=== PATIENT | female | born 1965 | race Caucasian/White ===

== ENCOUNTER 2017-03-22 09:30 | Day surgery (SDC) | payer OTHER ==
[2017-03-22 10:11] VITALS: BMI 24.5
[2017-03-22] MEDS ORDERED: Lactated Ringer's 500 ML IV ONE (10:14)
[2017-03-22] MEDS ORDERED: Propofol 10 mg/ml Inj (20 ML) ONE (11:02)
[2017-03-22 11:55] VITALS: BP 121/73; PULSE 53; RESP 16; TEMP 96.9; O2SAT 100
== END 2017-03-22 13:31 | disposition home or self-care (01) ==
LOC: H.ENDO 09:30
PROVIDERS: ATTEND Internal Medicine Gastroenterology
DX: Z12.11 Encounter for screening for malignant neoplasm of colon (principal); K64.1 Second degree hemorrhoids

== ENCOUNTER 2017-04-23 15:46 | Emergency (ER) | payer SELFPAY ==
[2017-04-23 15:46] VITALS: BMI 24.5
[2017-04-23 15:52] VITALS: BP 115/78; PULSE 68; RESP 18; TEMP 97.7; O2SAT 98
[2017-04-23] MEDS ORDERED: Sodium Chloride 0.9% 1,000 ML IV STA (16:25)
--- NOTE | 2017-04-23 16:26 | ED PDOC ---
HPI: Headache Time Seen by Provider: 04/23/17 15:56 Chief Complaint (Nursing): Headache Chief Complaint (Provider): Headache History Per: Patient History/Exam Limitations: no limitations Onset/Duration Of Symptoms: Days (x5) Current Symptoms Are (Timing): Still Present Additional Complaint(s): Adina Montero is a 52 year old female with previous medical history of hypercholesterolemia, who presents to the emergency department with a complaint of right-sided constant headache ongoing for 5 days. Denied head injury, numbness, tingling sensation, nausea, vomiting, diarrhea, difficulty breathing, chest, neck pain, or abdominal pain. Patient stated she takes Advil or Tylenol for headaches but only experiences temporary relief. Not the worst pain in her life. Has had headaches similar in the past. PMD: none provided Past Medical History Reviewed: Historical Data, Nursing Documentation, Vital Signs Vital Signs: Last Vital Signs Temp 97.7 F 04/23/17 15:48 Pulse 68 04/23/17 15:48 Resp 18 04/23/17 15:48 BP 115/78 04/23/17 15:48 Pulse Ox 98 04/23/17 15:48 - Medical History PMH: Hypercholesterolemia Denies: Chronic Kidney Disease Other PMH: headaches - Surgical History Surgical History: No Surg Hx - Family History Family History: States: Unknown Family Hx - Social History Current smoker - smoking cessation education provided: No Alcohol: None Drugs: Denies - Home Medications Home Medications: Ambulatory Orders Medication Instructions Recorded No Known Home Med 03/22/17 - Allergies Allergies/Adverse Reactions: Allergies Allergy/AdvReac Type Severity Reaction Status Date / Time No Known Allergies Allergy Verified 03/22/17 10:11 Review of Systems ROS Statement: Except As Marked, All Systems Reviewed And Found Negative Constitutional: Negative for: Fever, Weakness Cardiovascular: Negative for: Chest Pain Respiratory: Negative for: Shortness of Breath Gastrointestinal: Negative for: Nausea, Vomiting, Abdominal Pain, Diarrhea Musculoskeletal: Negative for: Neck Pain, Shoulder Pain, Arm Pain Skin: Negative for: Rash Neurological: Positive for: Headache (right sided). Negative for: Weakness, Numbness (or tingling sensation), Other (head injury) Physical Exam - Reviewed Nursing Documentation Reviewed: Yes Vital Signs Reviewed: Yes - Physical Exam Appears: Positive for: Non-toxic, No Acute Distress Head Exam: Positive for: ATRAUMATIC, NORMAL INSPECTION, NORMOCEPHALIC Skin: Positive for: Normal Color, Warm, Dry Eye Exam: Positive for: Normal appearance, EOMI, PERRL. Negative for: Nystagmus ENT: Positive for: Normal ENT Inspection Neck: Positive for: Normal, Painless ROM, Supple Cardiovascular/Chest: Positive for: Regular Rate, Rhythm. Negative for: Chest Non Tender Respiratory: Positive for: Normal Breath Sounds. Negative for: Respiratory Distress Gastrointestinal/Abdominal: Positive for: Normal Exam, Bowel Sounds, Soft. Negative for: Tenderness, Guarding, Rebound Back: Positive for: Normal Inspection. Negative for: L CVA Tenderness, R CVA Tenderness Extremity: Positive for: Normal ROM. Negative for: Tenderness, Pedal Edema, Deformity Neurologic/Psych: Positive for: Alert, sugar boiler II-XII, Oriented, Other (no temporal tenderness). Negative for: Motor/Sensory Deficits, Aphasia, Facial Droop - Laboratory Results Result Diagrams: 04/23/17 17:16 04/23/17 17:16 Interpretation Of Abn Labs: no acute - ECG O2 Sat by Pulse Oximetry: 98 (RA) Pulse Ox Interpretation: Normal - CT Scan/US head Other Rad Studies (CT/US): Read By Radiologist Other Rad Interpretation: no acute - Progress ED Course And Treament: 181: Stable. AAOx3. Pain free with reglan. No visual changes. Fu with pcp. Advised to return if pain returns. Will consider LP at that time to further eval for bleeding or meningitis. Clinical suspicion low for these two considering resolution of symptoms, not severe headache, presentation, and no other clinical findings to suggest such. Medical Decision Making Medical Decision Making: Initial Impression: Headache Initial Plan: * CT head without contrast * CMP * Urine dipstick * Urine * CBC * ESR * PTT * PT * Reglan 10mg IV * NS 1,000ml IV per 1,000mls/hr Scribe Attestation: Documented by Nicolle Freeman, acting as a scribe for Jerrod Craig MD. Provider Scribe Attestation: All medical record entries made by the Scribe were at my direction and personally dictated by me. I have reviewed the chart and agree that the record accurately reflects my personal performance of the history, physical exam, medical decision making, and the department course for this patient. I have also personally directed, reviewed, and agree with the discharge instructions and disposition. Disposition - Clinical Impression Clinical Impression: Headache - Patient ED Disposition Is Patient to be Admitted: No Counseled Patient/Family Regarding: Studies Performed, Diagnosis, Need For Followup - Disposition Referrals: [facility] [Outside] - 04/25/17 Disposition: Routine/Home Disposition Time: 18:21 Condition: STABLE Additional Instructions: Return right away if headache returns. Will need to consider lumbar puncture and further testing to evaluate if any bleeding in the brain or infection in the brain present. Vuelva inmediatamente si el dolor de gladys vuelve. Ser necesario considerar la puncin lumbar y pruebas adicionales para evaluar si hay sangrado en el cerebro o sukhjinder infeccin en el cerebro presente. Instructions: Acute Headache (ED) Forms: [facility] (Ugandan) Print Language: BENINESE
[2017-04-23 17:28] LABS: BASO % 0.6 % (0.0-2.0); EOS # 0.1 K/uL (0.0-0.7); EOS % 1.4 % (0.0-4.0); HEMATOCRIT 42.8 % (34.0-47.0); LYMPH # 2.7 K/uL (1.0-4.3); LYMPH % 41.9 % (20.0-40.0); MEAN CELL VOLUME 89.7 fl (81.0-99.0); MEAN CORPUSCULAR HEMOGLOBIN 29.6 pg (27.0-31.0); MEAN PLATELET VOLUME 9.7 fl (7.2-11.7); MONO # 0.5 K/uL (0.0-0.8); MONO % 8.2 % (0.0-10.0); NEUT % 47.9 % (50.0-75.0); NRBC % 0.1 % (0.0-0.0); RED CELL DISTRIBUTION WIDTH 13.5 % (11.5-14.5); WHITE BLOOD COUNT 6.3 K/uL (4.8-10.8)
[2017-04-23 17:32] LABS: ALB/GLOB RATIO 1.3 (1.0-2.1); ALKALINE PHOSPHATASE 103 U/L (38-126); ALT/SGPT 49 U/L (9-52); AST/SGOT 31 U/L (14-36); BILIRUBIN,TOTAL 0.5 mg/dl (0.2-1.3); BLOOD UREA NITROGEN 14 mg/dl (7-17); CALCIUM 9.9 mg/dL (8.4-10.2); CARBON DIOXIDE 22 mmol/L (22-30); CHLORIDE 107 mmol/L (98-107); GFR AFRICAN-AMERICAN > 60; GLUCOSE,RANDOM 105 mg/dL (65-105); POTASSIUM 4.5 MMOL/L (3.6-5.0); SODIUM 141 mmol/l (132-148)
[2017-04-23 17:37] LABS: PARTIAL THROMBOPLASTIN TIME 33.7 Seconds (25.6-37.1)
--- NOTE | 2017-04-23 17:59 | CT ---
PROCEDURE: CT HEAD WITHOUT CONTRAST. HISTORY: headache COMPARISON: None available. TECHNIQUE: Axial computed tomography images were obtained through the head/brain without intravenous contrast. Radiation dose: Total exam DLP = mGy-cm. This CT exam was performed using one or more of the following dose reduction techniques: Automated exposure control, adjustment of the mA and/or kV according to patient size, and/or use of iterative reconstruction technique. FINDINGS: HEMORRHAGE: No intracranial hemorrhage. BRAIN: No mass effect or edema. No atrophy or chronic microvascular ischemic changes. VENTRICLES: Unremarkable. No hydrocephalus. CALVARIUM: Unremarkable. PARANASAL SINUSES: Unremarkable as visualized. No significant inflammatory changes. MASTOID AIR CELLS: Unremarkable as visualized. No inflammatory changes. OTHER FINDINGS: None. IMPRESSION: No acute intracranial abnormalities. No significant findings to account for the clinical presentation.
== END 2017-04-23 18:32 | disposition home or self-care (01) ==
LOC: H.ER 15:46
DX: R51 Headache (principal)
CPT/HCPCS: 70450; 80053; 81025; 85025; 85610; 85651; 85730; 96374; 99284; J2765; J7040

== ENCOUNTER 2017-10-07 11:45 | Inpatient (IN) | payer MEDICAID, SELFPAY ==
[2017-10-07 12:05] VITALS: BMI 33.6
[2017-10-07] MEDS ORDERED: Sodium Chloride 0.9% 1,000 ML IV STA (12:57)
--- NOTE | 2017-10-07 13:30 | ED PDOC ---
HPI: Abdomen Time Seen by Provider: 10/07/17 12:39 Chief Complaint (Nursing): Abdominal Pain Chief Complaint (Provider): Abdominal Pain History Per: Patient History/Exam Limitations: no limitations Onset/Duration Of Symptoms: Hrs (x3) Current Symptoms Are (Timing): Still Present Location Of Pain/Discomfort: RUQ, RLQ Associated Symptoms: Nausea, Vomiting Additional Complaint(s): 52 year old female presents to the ER complaining of right-sided abdominal pain with acute onset around 9AM this morning. Pain radiates to the right flank. Patient also had several episodes of vomiting and felt feverish and nauseous. Pain is described as severe. PMD: [facility] Past Medical History Reviewed: Historical Data, Nursing Documentation, Vital Signs Vital Signs: Last Vital Signs Temp 97.5 F L 10/07/17 12:06 Pulse 68 10/07/17 12:06 Resp 20 10/07/17 12:06 BP 106/63 10/07/17 12:06 Pulse Ox 98 10/07/17 14:40 - Medical History PMH: Hypercholesterolemia Denies: Chronic Kidney Disease - Family History Family History: States: Unknown Family Hx - Home Medications Home Medications: Ambulatory Orders Medication Instructions Recorded Aspirin [Ecotrin] 81 mg PO DAILY 10/07/17 Atorvastatin [Lipitor] 40 mg PO DAILY 10/07/17 metFORMIN [glucOPHAGE] 500 mg PO BID 10/07/17 - Allergies Allergies/Adverse Reactions: Allergies Allergy/AdvReac Type Severity Reaction Status Date / Time No Known Allergies Allergy Verified 03/22/17 10:11 Review of Systems ROS Statement: Except As Marked, All Systems Reviewed And Found Negative Constitutional: Positive for: Fever Gastrointestinal: Positive for: Nausea, Vomiting, Abdominal Pain. Negative for : Diarrhea Genitourinary Female: Negative for: Dysuria, Hematuria, Vaginal Bleeding Physical Exam - Reviewed Nursing Documentation Reviewed: Yes Vital Signs Reviewed: Yes - Physical Exam Appears: Positive for: Uncomfortable (moderate to severe discomfort) Head Exam: Positive for: ATRAUMATIC, NORMAL INSPECTION, NORMOCEPHALIC Skin: Positive for: Normal Color, Warm. Negative for: Rash Eye Exam: Positive for: EOMI, Normal appearance, PERRL Neck: Positive for: Normal, Painless ROM Cardiovascular/Chest: Positive for: Regular Rate, Rhythm. Negative for: Murmur Respiratory: Positive for: Normal Breath Sounds, Other (lungs clear to auscultation). Negative for: Respiratory Distress Gastrointestinal/Abdominal: Positive for: Soft, Tenderness (severe tenderness to RUQ, no lower abdominal tenderness), Other ((+) Mueller's sign). Negative for : Distended Back: Positive for: Normal Inspection. Negative for: Vertebral Tenderness Extremity: Positive for: Normal ROM. Negative for: Pedal Edema, Deformity Neurologic/Psych: Positive for: Alert (and awake) - Laboratory Results Result Diagrams: 10/07/17 13:15 10/07/17 13:15 - ECG O2 Sat by Pulse Oximetry: 98 (RA) Pulse Ox Interpretation: Normal Medical Decision Making Medical Decision Making: Initial Impression: RUQ pain, Right flank pain. Rule out cholecystitis vs UTI vs kidney stones Time: 12:55 Initial Plan: * Labs * IV fluids * Pepcid 20 mg IV * Toradol 30 mg IV * Zofran 4 mg IV * US Abdomen Complete * Reassessment 14:27 US ABDOMEN COMPLETE: FINDINGS: LIVER: Measures 15.0 cm. Diffusely increased echogenicity of the liver parenchyma. No solid mass appreciable however, simple cysts identified at the right lobe posteriorly measuring 2.2 cm greatest dimension, stable in the interval. A 1.0 cm cyst is also seen in the right lobe superior to the gallbladder fossa which is stable as well. A 3rd cyst seen previously is not captured in this examination. GALLBLADDER: Cholelithiasis again stent seen in the dependent portion the gallbladder with the wall upper limits normal thickness at 3.0 mm. There is a positive sonographic Mueller sign of the gallbladder mildly distended. No pericholecystic fluid collection. Clinically correlate for potential cholecystitis nevertheless. COMMON BILE DUCT: Measures 9.5 mm. No choledocholithiasis identified. The mid and distal common bile duct are not captured in this exam, which is typical due to overlying bowel gas. Note, the common hepatic duct measures approximately 10.5 mm. PANCREAS: The tail of the pancreas is obscured by overlying bowel gas with remainder unremarkable. RIGHT KIDNEY: Measures 9.2cm. Normal echogenicity. No calculus, mass, or hydronephrosis. LEFT KIDNEY: Measures 9.6cm. Normal echogenicity. No calculus, mass, or hydronephrosis. SPLEEN: Spleen appears unremarkable measuring 8.1 cm. AORTA: No aneurysmal dilatation. IVC: Unremarkable. OTHER FINDINGS: None. IMPRESSION: 1. Interval prominent dilatation of the common hepatic and bile ducts is identified without choledocholithiasis. However, the gallbladder is distended with cholelithiasis and upper limits normal mural thickness and a positive sonographic Mueller sign suspicious for cholecystitis. Clinically correlate. Follow-up MRCP and abdomen and pelvis CT with oral and intravenous contrast is recommended. 2. Two ectatic simple cysts identified. 3. Partial imaging of the pancreas. 4. Hepatic steatosis is reiterated. Scribe Attestation: Documented by Michelle Silva, acting as a scribe for Lia Alves MD Provider Scribe Attestation: All medical record entries made by the Scribe were at my direction and personally dictated by me. I have reviewed the chart and agree that the record accurately reflects my personal performance of the history, physical exam, medical decision making, and the department course for this patient. I have also personally directed, reviewed, and agree with the discharge instructions and disposition. case d/w [facility] resident for admission. Case d/w surgical technology instructor for consult. Disposition - Clinical Impression Clinical Impression: Cholelithiasis, Abdominal pain, Elevated liver enzymes - Patient ED Disposition Is Patient to be Admitted: Yes Doctor Will See Patient In The: Hospital - Disposition Disposition: Transfer of Care Disposition Time: 15:35 Condition: STABLE - Pt Status Changed To: Hospital Disposition Of: Inpatient - Admit Certification Admit to Inpatient:: After my assessment, the patient will require hospitalization for at least two midnights. This is because of the severity of symptoms shown, intensity of services needed, and/or the medical risk in this patient being treated as an outpatient. - POA Present On Arrival: None
[2017-10-07 13:32] LABS: BASO % 0.2 % (0.0-2.0); EOS % 0.2 % (0.0-4.0); HEMOGLOBIN 14.3 g/dL (12.0-16.0); LYMPH # 2.2 K/uL (1.0-4.3); LYMPH % 15.5 % (20.0-40.0); MEAN CELL VOLUME 89.8 fl (81.0-99.0); MEAN CORPUSCULAR HEMOGLOBIN 30.4 pg (27.0-31.0); MEAN CORPUSCULAR HGB CONC 33.9 g/dL (33.0-37.0); MEAN PLATELET VOLUME 10.1 fl (7.2-11.7); MONO # 0.7 K/uL (0.0-0.8); MONO % 5.2 % (0.0-10.0); NEUT # 11.3 K/uL (1.8-7.0); NEUT % 78.9 % (50.0-75.0); RBC 4.71 Mil/uL (3.80-5.20); RED CELL DISTRIBUTION WIDTH 12.9 % (11.5-14.5); WHITE BLOOD COUNT 14.3 K/uL (4.8-10.8)
[2017-10-07 13:46] LABS: ALB/GLOB RATIO 1.2 (1.0-2.1); ALBUMIN 4.6 g/dL (3.5-5.0); ALT/SGPT 87 U/L (9-52); AST/SGOT 80 U/L (14-36); BLOOD UREA NITROGEN 15 mg/dl (7-17); CALCIUM 9.7 mg/dL (8.4-10.2); GFR AFRICAN-AMERICAN > 60; GFR NON-AFRICAN AMERICAN > 60
[2017-10-07 14:10] LABS: SQUAMOUS EPITHIAL 3 /hpf (0-5); URINE BACTERIA RARE (<OCC); URINE BILIRUBIN SMALL (NEGATIVE); URINE BLOOD NEGATIVE (NEGATIVE); URINE CLARITY TURBID (Clear); URINE COLOR YELLOW (YELLOW); URINE GLUCOSE (UA) NEG (Normal); URINE LEUKOCYTE ESTERASE TRACE Leu/uL (Negative); URINE NITRATE NEGATIVE (NEGATIVE); URINE PROTEIN 100 mg/dL (NEGATIVE); URINE UROBILINOGEN 0.2-1.0 mg/dL (0.2-1.0)
--- NOTE | 2017-10-07 14:28 | US ---
HISTORY: ruq pain COMPARISON: Abdomen ultrasound exam 07/20/2015 TECHNIQUE: Sonographic evaluation of the abdomen. FINDINGS: LIVER: Measures 15.0 cm. Diffusely increased echogenicity of the liver parenchyma. No solid mass appreciable however, simple cysts identified at the right lobe posteriorly measuring 2.2 cm greatest dimension, stable in the interval. A 1.0 cm cyst is also seen in the right lobe superior to the gallbladder fossa which is stable as well. A 3rd cyst seen previously is not captured in this examination. GALLBLADDER: Cholelithiasis again stent seen in the dependent portion the gallbladder with the wall upper limits normal thickness at 3.0 mm. There is a positive sonographic Mueller sign of the gallbladder mildly distended. No pericholecystic fluid collection. Clinically correlate for potential cholecystitis nevertheless. COMMON BILE DUCT: Measures 9.5 mm. No choledocholithiasis identified. The mid and distal common bile duct are not captured in this exam, which is typical due to overlying bowel gas. Note, the common hepatic duct measures approximately 10.5 mm. PANCREAS: The tail of the pancreas is obscured by overlying bowel gas with remainder unremarkable. RIGHT KIDNEY: Measures 9.2cm. Normal echogenicity. No calculus, mass, or hydronephrosis. LEFT KIDNEY: Measures 9.6cm. Normal echogenicity. No calculus, mass, or hydronephrosis. SPLEEN: Spleen appears unremarkable measuring 8.1 cm. AORTA: No aneurysmal dilatation. IVC: Unremarkable. OTHER FINDINGS: None. IMPRESSION: 1. Interval prominent dilatation of the common hepatic and bile ducts is identified without choledocholithiasis. However, the gallbladder is distended with cholelithiasis and upper limits normal mural thickness and a positive sonographic Mueller sign suspicious for cholecystitis. Clinically correlate. Follow-up MRCP and abdomen and pelvis CT with oral and intravenous contrast is recommended. 2. Two ectatic simple cysts identified. 3. Partial imaging of the pancreas. 4. Hepatic steatosis is reiterated.
[2017-10-07] MEDS ORDERED: Piperacillin/Tazobact 3.375 GM in Sodium Chloride 0.9% 100 ML IVPB STA (15:01)
[2017-10-07] MEDS ORDERED: Morphine 4 MG/ML VIAL IV STA (15:02)
[2017-10-07] MEDS ORDERED: Morphine 4 MG/ML VIAL ONE (15:07)
--- NOTE | 2017-10-07 16:27 | CP.PCM.CON ---
History of Present Illness - History of Present Illness History of Present Illness: General Surgery Consult Note - Dr. Muller 52 y/o female with PMHx of DM, HLD and hypothyroidism seen in ED after surgical consultation for RUQ abdominal pain x 1 day. Pt states she has been experiencing constant pain since early this morning, accompanied by N/V. Denies chills, diarrhea, constipation. Admits to a mild fever early this morning. States she had a similar presentation approx 1 year ago and was treated with pills. She says that if there is a surgery that can be done to correct this, she is interested in having it done. PSHx: none All: NKDA Soc: denies EtOH, cigarette or illicit drug use FamHx: denies Review of Systems - Review of Systems All systems: reviewed and no additional remarkable complaints except (per HPI) Past Patient History - Past Medical History & Family History Past Medical History?: Yes - Past Social History Smoking Status: Never Smoked - CARDIAC Hx Hypercholesterolemia: Yes - PULMONARY Hx Respiratory Disorders: No - NEUROLOGICAL Hx Neurological Disorder: No - HEENT Hx HEENT Problems: No - RENAL Hx Chronic Kidney Disease: No - ENDOCRINE/METABOLIC Hx Endocrine Disorders: No - HEMATOLOGICAL/ONCOLOGICAL Hx Blood Disorders: No - INTEGUMENTARY Hx Dermatological Problems: No - MUSCULOSKELETAL/RHEUMATOLOGICAL Hx Musculoskeletal Disorders: No - GASTROINTESTINAL Hx Gastrointestinal Disorders: No - GENITOURINARY/GYNECOLOGICAL Hx Genitourinary Disorders: No - PSYCHIATRIC Hx Psychophysiologic Disorder: No Hx Emotional Abuse: No Hx Physical Abuse: No Hx Substance Use: No - SURGICAL HISTORY Hx Surgeries: Yes Hx Tubal Ligation: Yes - ANESTHESIA Hx Anesthesia: Yes Hx Anesthesia Reactions: No Hx Malignant Hyperthermia: No Meds Allergies/Adverse Reactions: Allergies Allergy/AdvReac Type Severity Reaction Status Date / Time No Known Allergies Allergy Verified 03/22/17 10:11 Physical Exam - Constitutional Appears: Well, Non-toxic, No Acute Distress - Head Exam Head Exam: ATRAUMATIC, NORMAL INSPECTION - Eye Exam Eye Exam: Normal appearance Pupil Exam: PERRL - Respiratory Exam Respiratory Exam: NORMAL BREATHING PATTERN. absent: Respiratory Distress - Cardiovascular Exam Cardiovascular Exam: REGULAR RHYTHM - GI/Abdominal Exam GI & Abdominal Exam: Tenderness. absent: Distended, Hernia, Mass, Rebound Additional comments: moderate RUQ tenderness - Extremities Exam Extremities exam: Positive for: normal inspection - Neurological Exam Neurological exam: Alert, Oriented x3 - Psychiatric Exam Psychiatric exam: Normal Affect, Normal Mood - Skin Skin Exam: Dry, Intact Results - Vital Signs Recent Vital Signs: Last Vital Signs Temp 98.8 F 10/07/17 15:47 Pulse 72 10/07/17 15:47 Resp 18 10/07/17 15:47 BP 107/68 10/07/17 15:47 Pulse Ox 95 10/07/17 15:47 - Labs Result Diagrams: 10/07/17 13:15 10/07/17 13:15 Labs: Laboratory Results - last 24 hr 10/07/17 10/07/17 10/07/17 13:15 13:15 13:40 WBC 14.3 H D RBC 4.71 Hgb 14.3 Hct 42.3 MCV 89.8 MCH 30.4 MCHC 33.9 RDW 12.9 Plt Count 270 MPV 10.1 Neut % (Auto) 78.9 H Lymph % (Auto) 15.5 L [place] % (Auto) 5.2 Eos % (Auto) 0.2 Baso % (Auto) 0.2 Neut # (Auto) 11.3 H Lymph # (Auto) 2.2 [place] # (Auto) 0.7 Eos # (Auto) 0.0 Baso # (Auto) 0.0 Sodium 142 Potassium 4.2 Chloride 105 Carbon Dioxide 19 L Anion Gap 22 H BUN 15 Creatinine 0.6 L Est GFR ( Amer) > 60 Est GFR (Non-Af Amer) > 60 Random Glucose 149 H Calcium 9.7 Total Bilirubin 0.9 AST 80 H D ALT 87 H D Alkaline Phosphatase 110 Troponin I < 0.0120 Total Protein 8.3 H Albumin 4.6 Globulin 3.7 Albumin/Globulin Ratio 1.2 Urine Color Yellow Urine Clarity Turbid Urine pH 5.0 Ur Specific [place] 1.035 H Urine Protein 100 Urine Glucose (UA) Neg Urine Ketones Trace Urine Blood Negative Urine Nitrate Negative Urine Bilirubin Small Urine Urobilinogen 0.2-1.0 Ur Leukocyte Esterase Trace Urine RBC (Auto) 21 H Urine Microscopic WBC 15 H Ur Squamous Epith Cells 3 Urine Bacteria Rare Assessment & Plan - Assessment and Plan (Free Text) Assessment: 52 y/o female with RUQ abdominal pain with possible cholecystitis, r/o choledocholithiasis Plan: -NPO diet -IV abx -MRCP to evaluate dilated CBD -pt may need GI consult -plan for lap avinash early next week following MRCP -discussed with Dr. Muller
--- NOTE | 2017-10-07 16:48 | ED PDOC ---
HPI: Abdomen Time Seen by Provider: 10/07/17 12:39 Chief Complaint (Nursing): Abdominal Pain Chief Complaint (Provider): Abdominal Pain History Per: Patient History/Exam Limitations: no limitations Onset/Duration Of Symptoms: Hrs (x3) Past Medical History Vital Signs: Last Vital Signs Temp 98.8 F 10/07/17 15:47 Pulse 72 10/07/17 15:47 Resp 18 10/07/17 15:47 BP 107/68 10/07/17 15:47 Pulse Ox 95 10/07/17 15:47 - Medical History PMH: Hypercholesterolemia Denies: Chronic Kidney Disease - Family History Family History: States: Unknown Family Hx - Home Medications Home Medications: Ambulatory Orders Medication Instructions Recorded Aspirin [Ecotrin] 81 mg PO DAILY 10/07/17 Atorvastatin [Lipitor] 40 mg PO DAILY 10/07/17 metFORMIN [glucOPHAGE] 500 mg PO BID 10/07/17 - Allergies Allergies/Adverse Reactions: Allergies Allergy/AdvReac Type Severity Reaction Status Date / Time No Known Allergies Allergy Verified 03/22/17 10:11 - Laboratory Results Result Diagrams: 10/07/17 13:15 10/07/17 13:15 - ECG O2 Sat by Pulse Oximetry: 95 Disposition - Clinical Impression Clinical Impression: Cholelithiasis, Abdominal pain, Elevated liver enzymes - Disposition Disposition: Transfer of Care Disposition Time: 15:35 Condition: STABLE - Pt Status Changed To: Hospital Disposition Of: Inpatient - Admit Certification Admit to Inpatient:: After my assessment, the patient will require hospitalization for at least two midnights. This is because of the severity of symptoms shown, intensity of services needed, and/or the medical risk in this patient being treated as an outpatient. - POA Present On Arrival: None
--- NOTE | 2017-10-07 16:51 | CP.PCM.HP ---
History of Present Illness - History of Present Illness History of Present Illness: This is 52 y/o female with PMH of HLD and DMII admitted for evaluation and treatment of 1 day history of RUQ pain. As per patient, pain started this morning all the sudden in morning at 9am after pupiya juice , pain is sharp, 10/ 10 severity, radiating to right flank and constant. pain is associated with 10 episodes of NBNB vomiting. Patient have had this kind of pain 1 year ago when she was diagnosed with gallstone and improved on medication (doesn't remember which medication). Patient denies any urinary symptoms, chest pain, SOB, leftside abdominal pain or dizziness. PMH: Dr. Sonya SALGADO PMH: Dieabetes, HLD PSH: Denies Meds: only Metformin 500 BID, (PMD note, patient was given statin and asprin) Allg: NKDA FH: Denies any family history SH: Denies any alcohol, smoking or drug use OBGYN: , NVD, postmenopausal ED course : Afebrile, normotensive, normal HR IV fluid Pepcid 20 mg IV Toradol 30 mg IV Morphin 2mg Zofran 4 mg IV UA: negative for nitrate CBC: wbc: 14.3 CMP: AST/ALT: 80/87 US Abdomen: Interval prominent dilatation of the common hepatic and bile ducts is identified without choledocholithiasis. However, the gallbladder is distended with cholelithiasis and upper limits normal mural thickness and a positive sonographic Mueller sign suspicious for cholecystitis. Clinically correlate. Follow-up MRCP and abdomen and pelvis CT with oral and intravenous contrast is recommended Surgery Consult Present on Admission - Present on Admission Any Indicators Present on Admission: No History of DVT/PE: No History of Uncontrolled Diabetes: No Urinary Catheter: No Decubitus Ulcer Present: No Past Patient History - Past Medical History & Family History Past Medical History?: Yes - Past Social History Smoking Status: Never Smoked - CARDIAC Hx Hypercholesterolemia: Yes - PULMONARY Hx Respiratory Disorders: No - NEUROLOGICAL Hx Neurological Disorder: No - HEENT Hx HEENT Problems: No - RENAL Hx Chronic Kidney Disease: No - ENDOCRINE/METABOLIC Hx Endocrine Disorders: No - HEMATOLOGICAL/ONCOLOGICAL Hx Blood Disorders: No - INTEGUMENTARY Hx Dermatological Problems: No - MUSCULOSKELETAL/RHEUMATOLOGICAL Hx Musculoskeletal Disorders: No - GASTROINTESTINAL Hx Gastrointestinal Disorders: No - GENITOURINARY/GYNECOLOGICAL Hx Genitourinary Disorders: No - PSYCHIATRIC Hx Psychophysiologic Disorder: No Hx Emotional Abuse: No Hx Physical Abuse: No Hx Substance Use: No - SURGICAL HISTORY Hx Surgeries: Yes Hx Tubal Ligation: Yes - ANESTHESIA Hx Anesthesia: Yes Hx Anesthesia Reactions: No Hx Malignant Hyperthermia: No Meds Allergies/Adverse Reactions: Allergies Allergy/AdvReac Type Severity Reaction Status Date / Time No Known Allergies Allergy Verified 03/22/17 10:11 Physical Exam - Constitutional Appears: No Acute Distress - Head Exam Head Exam: ATRAUMATIC, NORMAL INSPECTION, NORMOCEPHALIC - Eye Exam Eye Exam: Normal appearance Pupil Exam: NORMAL ACCOMODATION - ENT Exam ENT Exam: Mucous Membranes Moist - Neck Exam Neck exam: Positive for: Normal Inspection - Respiratory Exam Respiratory Exam: Clear to Auscultation Bilateral, NORMAL BREATHING PATTERN - Cardiovascular Exam Cardiovascular Exam: REGULAR RHYTHM - GI/Abdominal Exam GI & Abdominal Exam: Soft, Tenderness (RUQ, mueller's sign positive with right CV tenderness ) - Extremities Exam Extremities exam: Positive for: normal inspection. Negative for: pedal edema, tenderness - Back Exam Back exam: CVA tenderness (R). absent: CVA tenderness (L) - Neurological Exam Neurological exam: Alert, CN II-XII Intact, Oriented x3 - Psychiatric Exam Psychiatric exam: Normal Affect - Skin Skin Exam: Dry, Intact, Normal Color Results - Vital Signs Recent Vital Signs: Last Vital Signs Temp 98.8 F 10/07/17 15:47 Pulse 72 10/07/17 15:47 Resp 18 10/07/17 15:47 BP 107/68 10/07/17 15:47 Pulse Ox 95 10/07/17 15:47 - Labs Result Diagrams: 10/07/17 13:15 10/07/17 13:15 Labs: Laboratory Results - last 24 hr 10/07/17 10/07/17 10/07/17 13:15 13:15 13:40 WBC 14.3 H D RBC 4.71 Hgb 14.3 Hct 42.3 MCV 89.8 MCH 30.4 MCHC 33.9 RDW 12.9 Plt Count 270 MPV 10.1 Neut % (Auto) 78.9 H Lymph % (Auto) 15.5 L [place] % (Auto) 5.2 Eos % (Auto) 0.2 Baso % (Auto) 0.2 Neut # (Auto) 11.3 H Lymph # (Auto) 2.2 [place] # (Auto) 0.7 Eos # (Auto) 0.0 Baso # (Auto) 0.0 Sodium 142 Potassium 4.2 Chloride 105 Carbon Dioxide 19 L Anion Gap 22 H BUN 15 Creatinine 0.6 L Est GFR ( Amer) > 60 Est GFR (Non-Af Amer) > 60 Random Glucose 149 H Calcium 9.7 Total Bilirubin 0.9 AST 80 H D ALT 87 H D Alkaline Phosphatase 110 Troponin I < 0.0120 Total Protein 8.3 H Albumin 4.6 Globulin 3.7 Albumin/Globulin Ratio 1.2 Urine Color Yellow Urine Clarity Turbid Urine pH 5.0 Ur Specific [place] 1.035 H Urine Protein 100 Urine Glucose (UA) Neg Urine Ketones Trace Urine Blood Negative Urine Nitrate Negative Urine Bilirubin Small Urine Urobilinogen 0.2-1.0 Ur Leukocyte Esterase Trace Urine RBC (Auto) 21 H Urine Microscopic WBC 15 H Ur Squamous Epith Cells 3 Urine Bacteria Rare Assessment & Plan - Assessment and Plan (Free Text) Assessment: A/P: 52 y/o female with PMH of NIDDM2, HLD and cholelithiasis admitted to [facility] for evaluation and treatment of RUQ pain associated with vomiting, possible cholecystitis. RUQ abdominal pain, Possible cholecystitis - Afebrile - WBC: 14.3 - U/S: dilated CBD, no choledocholithiasis, + Cholelithiasis, positive sonographic Mueller sign suspicious for cholecystitis - NPO - IVF - Zofran 4mg IV - Pain management with Dilaudid - Zosyn 3.3 IV (day 1) - Surgery Consulted: Dr. Muller, Ji' appreciated - Possible MRCP tomorrow to evaluate CBD, pain management, continue Abx - Follow up CBC/CMP/Blood Cx and urine Cx Transaminitis possible related to cholecystitis/Choledocholithiasis - AST/ALT: 80/87 - Monitor CMP DMII - Hold Metformin - Low dose ISS DVT PPX - SCD
[2017-10-07] MEDS ORDERED: Morphine 4 MG/ML VIAL IVP PRN ×2 (17:08→17:14)
[2017-10-07] MEDS: Sodium Chloride 0.9% 1,000 ML IV SCH (17:13)
[2017-10-07] MEDS ORDERED: Glucagon Recombinant 1 mg Inj IM PRN (17:18)
[2017-10-07] MEDS ORDERED: Dextrose 50% SYRINGE Inj (50 ml) IV PRN (17:18)
[2017-10-07] MEDS: Piperacillin/Tazobact 3.375 GM in Sodium Chloride 0.9% 100 ML IVPB SCH (21:59)
[2017-10-07] MEDS: Insulin Regular 100 units/ml SC SCH (22:03)
[2017-10-08] MEDS: Sodium Chloride 0.9% 1,000 ML IV SCH ×2 (01:03→10:33)
[2017-10-08] MEDS: Piperacillin/Tazobact 3.375 GM in Sodium Chloride 0.9% 100 ML IVPB SCH ×2 (04:02→10:28)
[2017-10-08] MEDS: Insulin Regular 100 units/ml SC SCH ×4 (07:03→22:00)
--- NOTE | 2017-10-08 07:47 | CP.PCM.PN ---
Subjective - Date & Time of Evaluation Date of Evaluation: 10/08/17 Time of Evaluation: 07:44 - Subjective Subjective: General Surgery: Dr Muller Pt S&E. Reports symptoms have improved. Minimal pain. Denies n/v, f/c, sob or chest pain. Pt had MRCP yesterday, read pending. Understands will need gallbladder removed early next week Objective - Vital Signs/Intake and Output Vital Signs (last 24 hours): Temp Pulse Resp BP Pulse Ox 99.0 F 63 19 97/58 L 95 10/08/17 00:00 10/08/17 00:00 10/08/17 00:00 10/08/17 00:00 10/08/17 00:00 - Medications Medications: Current Medications Dextrose (Dextrose 50% Inj) 0 ml IV STAT PRN; Protocol PRN Reason: Hypoglycemia Protocol Dextrose (Glutose 15) 0 gm PO ONCE PRN; Protocol PRN Reason: Hypoglycemia Protocol Glucagon (Glucagen Diagnostic Kit) 0 mg IM STAT PRN; Protocol PRN Reason: Hypoglycemia Protocol Hydromorphone HCl (Dilaudid) 0.5 mg IVP Q3H PRN PRN Reason: Pain, Mild (1-3) Last Admin: 10/07/17 23:05 Dose: 0.5 mg Sodium Chloride (Sodium Chloride 0.9%) 1,000 mls @ 125 mls/hr IV .Q8H [facility] Stop: 10/08/17 17:08 Last Admin: 10/08/17 01:03 Dose: Not Given Piperacillin Sod/Tazobactam (Sod 3.375 gm/ Sodium Chloride) 100 mls @ 100 mls/ hr IVPB Q6 [facility]OTT PRN Reason: Protocol Last Admin: 10/08/17 04:02 Dose: 100 mls/hr Insulin Human Regular (Humulin R) 0 units SC ACHS SCOTT PRN Reason: Protocol Last Admin: 10/08/17 07:03 Dose: Not Given Ondansetron HCl (Zofran Inj) 4 mg IVP Q4 PRN PRN Reason: Nausea/Vomiting - Labs Labs: 10/07/17 13:15 10/07/17 13:15 - Constitutional Appears: Non-toxic, No Acute Distress - ENT Exam ENT Exam: Mucous Membranes Moist - Respiratory Exam Respiratory Exam: absent: Accessory Muscle Use, Respiratory Distress - Cardiovascular Exam Cardiovascular Exam: REGULAR RHYTHM. absent: Tachycardia - GI/Abdominal Exam GI & Abdominal Exam: Soft, Tenderness (RUQ but improved). absent: Distended, Firm, Guarding, Rigid - Neurological Exam Neurological Exam: Alert, Awake, Oriented x3 - Psychiatric Exam Psychiatric exam: Normal Affect, Normal Mood Assessment and Plan - Assessment and Plan (Free Text) Assessment: 52F with acute cholecystitis r/o choledocholithiasis Plan: f/u MRCP read ok for CLD, NPO tuesday night if MRCP negative plan for lap avinash tuesday, if + plan for GI intervention cont abx will d.w Dr Renzo Joyner, PGY3
--- NOTE | 2017-10-08 08:31 | MRI ---
PROCEDURE: Magnetic Resonance Cholangiopancreatography HISTORY: COMPARISON: None available. TECHNIQUE: Multiplanar, multisequence MR images of the abdomen were obtained, including heavily T2 weighted MRCP images of the biliary system. Rotating maximum intensity projection images of the biliary system were generated. FINDINGS: MRCP: There is no definite choledocholithiasis. No defined mural irregularity is identified either throughout the common hepatic or bile ducts. The common hepatic duct measures 8.6 mm with the proximal CBD measuring 8.0 mm common the mid segment measuring 8.6 mm and the distal segment tapering to 4.7 mm. No filling defect or meniscus is appreciated throughout the CBD. No significant intrahepatic biliary duct dilatation is appreciated. LIVER: There are few small cyst-like foci scattered throughout the liver with at least 5 identified in the right lobe and at least 2 identified at the left. The largest measures 1.7 cm greatest dimension at the inferior right lobe. Limited definition due to lack of gadolinium administration. GALLBLADDER: Sialolithiasis identified within a distended gallbladder with the gallbladder otherwise unremarkable appearing. SPLEEN: Unremarkable. PANCREAS: Unremarkable. ADRENALS: Unremarkable. KIDNEYS: Unremarkable. AORTA: No aneurysm. ASCITES: None. OTHER FINDINGS: None. IMPRESSION: Cholelithiasis identified within a distended but otherwise unremarkable appearing gallbladder and common hepatic dilatation appears somewhat diminished in interval remains prominent at the 8.6 mm with the proximal and mid CBD dilated to 8 and 8.6 mm respectively though with a normal distal caliber. No choledocholithiasis is appreciable. No prominent pancreatic mass identified this time either in the pancreatic duct is normal in caliber. Consider potentially expelled choledocholithiasis though a distal stricture is not completely excluded. Neoplasm is not favored but is also included in the differential diagnosis including bile duct or pancreatic neoplasm. Further clinical correlation is advised, even potentially endoscopic pancreatic ultrasound if clinically warranted.
[2017-10-08 08:35] LABS: BASO % 0.7 % (0.0-2.0); EOS % 0.7 % (0.0-4.0); HEMOGLOBIN 12.3 g/dL (12.0-16.0); LYMPH # 1.2 K/uL (1.0-4.3); MEAN CELL VOLUME 90.3 fl (81.0-99.0); MEAN CORPUSCULAR HEMOGLOBIN 30.4 pg (27.0-31.0); MEAN CORPUSCULAR HGB CONC 33.6 g/dL (33.0-37.0); MEAN PLATELET VOLUME 10.3 fl (7.2-11.7); MONO # 0.6 K/uL (0.0-0.8); MONO % 10.4 % (0.0-10.0); NEUT # 3.8 K/uL (1.8-7.0); NEUT % 66.2 % (50.0-75.0); RBC 4.05 Mil/uL (3.80-5.20); RED CELL DISTRIBUTION WIDTH 13.4 % (11.5-14.5); WHITE BLOOD COUNT 5.7 K/uL (4.8-10.8)
[2017-10-08 08:44] LABS: ALB/GLOB RATIO 1.1 (1.0-2.1); ALBUMIN 3.4 g/dL (3.5-5.0); ALT/SGPT 327 U/L (9-52); AST/SGOT 282 U/L (14-36); BLOOD UREA NITROGEN 17 mg/dl (7-17); CALCIUM 8.3 mg/dL (8.4-10.2); GFR AFRICAN-AMERICAN > 60; GFR NON-AFRICAN AMERICAN > 60
--- NOTE | 2017-10-08 09:16 | CP.PCM.PN ---
Subjective - Date & Time of Evaluation Date of Evaluation: 10/08/17 Time of Evaluation: 09:00 - Subjective Subjective: Patient is sitting upright in chair at bedside with guests in room. She is in no acute distress however is experiencing mild/moderate RUQ pain which is worse with movement. She has been NPO and denies any appetite at this time. No fevers , chest pain, vomiting or diarrhea overnight. She understands plan for possible surgical intervention. Objective - Vital Signs/Intake and Output Vital Signs (last 24 hours): Temp Pulse Resp BP Pulse Ox 98.4 F 62 20 103/65 96 10/08/17 08:19 10/08/17 08:19 10/08/17 08:19 10/08/17 08:19 10/08/17 08:19 - Medications Medications: Current Medications Dextrose (Dextrose 50% Inj) 0 ml IV STAT PRN; Protocol PRN Reason: Hypoglycemia Protocol Dextrose (Glutose 15) 0 gm PO ONCE PRN; Protocol PRN Reason: Hypoglycemia Protocol Glucagon (Glucagen Diagnostic Kit) 0 mg IM STAT PRN; Protocol PRN Reason: Hypoglycemia Protocol Hydromorphone HCl (Dilaudid) 0.5 mg IVP Q3H PRN PRN Reason: Pain, Mild (1-3) Last Admin: 10/07/17 23:05 Dose: 0.5 mg Sodium Chloride (Sodium Chloride 0.9%) 1,000 mls @ 125 mls/hr IV .Q8H [facility] Stop: 10/08/17 17:08 Last Admin: 10/08/17 01:03 Dose: Not Given Piperacillin Sod/Tazobactam (Sod 3.375 gm/ Sodium Chloride) 100 mls @ 100 mls/ hr IVPB Q6 [facility] PRN Reason: Protocol Last Admin: 10/08/17 04:02 Dose: 100 mls/hr Insulin Human Regular (Humulin R) 0 units SC ACHS [facility]OTT PRN Reason: Protocol Last Admin: 10/08/17 07:03 Dose: Not Given Ondansetron HCl (Zofran Inj) 4 mg IVP Q4 PRN PRN Reason: Nausea/Vomiting - Labs Labs: 10/08/17 07:31 10/08/17 07:31 - Constitutional Appears: Non-toxic, No Acute Distress - Head Exam Head Exam: ATRAUMATIC, NORMAL INSPECTION, NORMOCEPHALIC - Eye Exam Eye Exam: EOMI. absent: Scleral icterus - ENT Exam ENT Exam: Mucous Membranes Moist - Respiratory Exam Respiratory Exam: Clear to Ausculation Bilateral, NORMAL BREATHING PATTERN. absent: Rales, Rhonchi, Wheezes - Cardiovascular Exam Cardiovascular Exam: REGULAR RHYTHM, RRR, +S1, +S2 - GI/Abdominal Exam GI & Abdominal Exam: Soft, Tenderness (RUQ tenderness), Normal Bowel Sounds. absent: Distended, Rebound - Extremities Exam Extremities Exam: absent: Calf Tenderness, Pedal Edema - Neurological Exam Neurological Exam: Alert, Awake, Oriented x3 - Psychiatric Exam Psychiatric exam: Normal Affect, Normal Mood - Skin Skin Exam: Warm. absent: Dry Additional comments: No jaundice Assessment and Plan - Assessment and Plan (Free Text) Assessment: 52 y/o F with PMH including NIDDM2, HLD and cholelithiasis presented with RUQ pain associated with nausea/vomiting and admitted for acute cholecystitis. Plan: Acute Cholecystitis without choledocholithiasis -Patient remains afebrile. -WBC improved 14.3 > 5.7 -U/S revealed dilated CBD with no choledocholithiasis, however cholelithiasis is present -MRCP detected dilated CBD with no stones within bile duct -General surgery consultation appreciated who are considering surgical cholecystectomy if no stones found in CBD -Zosyn 3.375 gm Q6h (Started 10/07/17, Current day 2) -Will remain NPO -Zofran 4mg IV Q4h prn nausea -Dilaudid 0.5mg IV Q3h prn NIDDM2 -Last HgbA1c: 7.0% in 09/2017 -Hold home metformin 500mg bid -Low dose ISS while in house -ACCUchecks -Hypoglycemia protocol DVT Prophylaxis -Lovenox 40mg sc daily -SCDs
[2017-10-08] MEDS: Enoxaparin 40 mg Syringe SC SCH (15:15)
[2017-10-08] MEDS: metroNIDAZOLE 500mg/100ml NS 100 ML IVPB SCH (18:46)
[2017-10-08] MEDS: Ciprofloxacin 400mg/200ml D5W 400 MG/200 ML BAG IVPB SCH (20:57)
--- NOTE | 2017-10-08 23:50 | CP.PCM.CON ---
History of Present Illness - History of Present Illness History of Present Illness: 52 yo female admitted with RLQ and epigastric abdominal pain. Patient has multiple gallstones and elevated LFTs. MRCP was done earlier. Consultation was requested because Dr. Muller felt there may be a retained stone on the basis of the MRCP. Review of Systems - Constitutional Constitutional: absent: Chills - EENT Eyes: absent: Blurred Vision Nose/Mouth/Throat: absent: Epistaxis - Cardiovascular Cardiovascular: absent: Chest Pain - Respiratory Respiratory: absent: Cough - Gastrointestinal Gastrointestinal: Abdominal Pain - Genitourinary Genitourinary: absent: Change in Urinary Stream Past Patient History - Past Medical History & Family History Past Medical History?: Yes - Past Social History Smoking Status: Never Smoked - CARDIAC Hx Cardiac Disorders: Yes Hx Hypercholesterolemia: Yes - PULMONARY Hx Respiratory Disorders: No - NEUROLOGICAL Hx Neurological Disorder: No - HEENT Hx HEENT Problems: No - RENAL Hx Chronic Kidney Disease: No - ENDOCRINE/METABOLIC Hx Endocrine Disorders: No - HEMATOLOGICAL/ONCOLOGICAL Hx Blood Disorders: No Hx Human Immunodeficiency Virus (HIV): No - INTEGUMENTARY Hx Dermatological Problems: No - MUSCULOSKELETAL/RHEUMATOLOGICAL Hx Musculoskeletal Disorders: No Hx Falls: No - GASTROINTESTINAL Hx Gastrointestinal Disorders: No - GENITOURINARY/GYNECOLOGICAL Hx Genitourinary Disorders: No - PSYCHIATRIC Hx Psychophysiologic Disorder: No Hx Emotional Abuse: No Hx Physical Abuse: No Hx Substance Use: No - SURGICAL HISTORY Hx Surgeries: Yes Hx Tubal Ligation: Yes - ANESTHESIA Hx Anesthesia: Yes Hx Anesthesia Reactions: No Hx Malignant Hyperthermia: No Meds Allergies/Adverse Reactions: Allergies Allergy/AdvReac Type Severity Reaction Status Date / Time No Known Allergies Allergy Verified 03/22/17 10:11 - Medications Medications: Current Medications Dextrose (Dextrose 50% Inj) 0 ml IV STAT PRN; Protocol PRN Reason: Hypoglycemia Protocol Dextrose (Glutose 15) 0 gm PO ONCE PRN; Protocol PRN Reason: Hypoglycemia Protocol Enoxaparin Sodium (Lovenox) 40 mg SC DAILY [facility] PRN Reason: Protocol Last Admin: 10/08/17 15:15 Dose: 40 mg Glucagon (Glucagen Diagnostic Kit) 0 mg IM STAT PRN; Protocol PRN Reason: Hypoglycemia Protocol Hydromorphone HCl (Dilaudid) 0.5 mg IVP Q3H PRN PRN Reason: Pain, Mild (1-3) Last Admin: 10/08/17 11:20 Dose: 0.5 mg Ciprofloxacin (Cipro 400mg/200ml Dsw) 400 mg in 200 mls @ 200 mls/hr IVPB Q12 [facility] PRN Reason: Protocol Last Admin: 10/08/17 20:57 Dose: 200 mls/hr Metronidazole (Flagyl 500mg/100ml Ns) 100 mls @ 100 mls/hr IVPB Q8 [facility] PRN Reason: Protocol Last Admin: 10/08/17 18:46 Dose: 100 mls/hr Insulin Human Regular (Humulin R) 0 units SC ACHS [facility] PRN Reason: Protocol Last Admin: 10/08/17 22:00 Dose: Not Given Ondansetron HCl (Zofran Inj) 4 mg IVP Q4 PRN PRN Reason: Nausea/Vomiting Physical Exam - Head Exam Head Exam: ATRAUMATIC - Eye Exam Eye Exam: Normal appearance - ENT Exam ENT Exam: Mucous Membranes Moist - Neck Exam Neck exam: Positive for: Normal Inspection - Respiratory Exam Respiratory Exam: Clear to Auscultation Bilateral - Cardiovascular Exam Cardiovascular Exam: REGULAR RHYTHM, +S1, +S2 - GI/Abdominal Exam GI & Abdominal Exam: Normal Bowel Sounds, Soft, Tenderness Additional comments: tender epigastrum and RUQ Results - Vital Signs Recent Vital Signs: Last Vital Signs Temp 98.5 F 10/08/17 16:16 Pulse 63 10/08/17 16:16 Resp 20 10/08/17 16:16 BP 115/74 10/08/17 16:16 Pulse Ox 96 10/08/17 16:16 - Labs Result Diagrams: 10/08/17 07:31 10/08/17 07:31 Labs: Laboratory Results - last 24 hr 10/08/17 10/08/17 10/08/17 05:27 07:31 07:31 WBC 5.7 D RBC 4.05 Hgb 12.3 D Hct 36.6 MCV 90.3 MCH 30.4 MCHC 33.6 RDW 13.4 Plt Count 234 MPV 10.3 Neut % (Auto) 66.2 Lymph % (Auto) 22.0 [place] % (Auto) 10.4 H Eos % (Auto) 0.7 Baso % (Auto) 0.7 Neut # (Auto) 3.8 Lymph # (Auto) 1.2 [place] # (Auto) 0.6 Eos # (Auto) 0.0 Baso # (Auto) 0.0 Sodium 145 Potassium 3.7 Chloride 109 H Carbon Dioxide 24 Anion Gap 16 BUN 17 Creatinine 0.8 Est GFR ( Amer) > 60 Est GFR (Non-Af Amer) > 60 POC Glucose (mg/dL) 94 Random Glucose 94 Calcium 8.3 L Total Bilirubin 1.6 H AST 282 H D ALT 327 H D Alkaline Phosphatase 100 Total Protein 6.5 Albumin 3.4 L D Globulin 3.0 Albumin/Globulin Ratio 1.1 10/08/17 10/08/17 10/08/17 11:09 15:26 21:43 WBC RBC Hgb Hct MCV MCH MCHC RDW Plt Count MPV Neut % (Auto) Lymph % (Auto) [place] % (Auto) Eos % (Auto) Baso % (Auto) Neut # (Auto) Lymph # (Auto) [place] # (Auto) Eos # (Auto) Baso # (Auto) Sodium Potassium Chloride Carbon Dioxide Anion Gap BUN Creatinine Est GFR ( Amer) Est GFR (Non-Af Amer) POC Glucose (mg/dL) 123 H 113 H 122 H Random Glucose Calcium Total Bilirubin AST ALT Alkaline Phosphatase Total Protein Albumin Globulin Albumin/Globulin Ratio - Imaging and Cardiology MRI - abdomen Status: Image reviewed by me, Report reviewed by me Assessment & Plan (1) Abdominal pain Assessment and Plan: Continuing abdominal pain with elevated LFTs and possible stricture or small stone of CBD. Continue antibiotics. ERCP Tuesday. Status: Acute
[2017-10-09] MEDS: metroNIDAZOLE 500mg/100ml NS 100 ML IVPB SCH ×3 (00:24→16:52)
[2017-10-09 07:11] LABS: BASO % 0.5 % (0.0-2.0); EOS # 0.1 K/uL (0.0-0.7); EOS % 1.5 % (0.0-4.0); HEMOGLOBIN 12.9 g/dL (12.0-16.0); LYMPH # 1.6 K/uL (1.0-4.3); LYMPH % 25.7 % (20.0-40.0); MEAN CELL VOLUME 89.1 fl (81.0-99.0); MEAN CORPUSCULAR HEMOGLOBIN 30.6 pg (27.0-31.0); MEAN CORPUSCULAR HGB CONC 34.4 g/dL (33.0-37.0); MEAN PLATELET VOLUME 10.2 fl (7.2-11.7); MONO # 0.7 K/uL (0.0-0.8); MONO % 11.1 % (0.0-10.0); NEUT # 3.7 K/uL (1.8-7.0); NEUT % 61.2 % (50.0-75.0); RBC 4.21 Mil/uL (3.80-5.20); RED CELL DISTRIBUTION WIDTH 13.4 % (11.5-14.5); WHITE BLOOD COUNT 6.1 K/uL (4.8-10.8)
[2017-10-09 07:40] LABS: ALB/GLOB RATIO 1.2 (1.0-2.1); ALBUMIN 3.8 g/dL (3.5-5.0); ALT/SGPT 246 U/L (9-52); AST/SGOT 109 U/L (14-36); BLOOD UREA NITROGEN 7 mg/dl (7-17); CALCIUM 8.8 mg/dL (8.4-10.2); GFR AFRICAN-AMERICAN > 60; GFR NON-AFRICAN AMERICAN > 60; LIPASE 99 U/L (23-300)
--- NOTE | 2017-10-09 08:30 | CP.PCM.PN ---
Subjective - Date & Time of Evaluation Date of Evaluation: 10/09/17 Time of Evaluation: 10:30 - Subjective Subjective: Patient seen and examined at bedside. She is sitting upright in bed and appears in no acute distress. Continues to experience RUQ abdominal pain which was moderately controlled overnight. Tolerated small amount of clear liquids this morning without vomiting. Has been afebrile. Objective - Vital Signs/Intake and Output Vital Signs (last 24 hours): Temp Pulse Resp BP Pulse Ox 98.4 F 63 19 115/71 97 10/09/17 00:00 10/09/17 00:00 10/09/17 00:00 10/09/17 00:00 10/09/17 00:00 - Medications Medications: Current Medications Dextrose (Dextrose 50% Inj) 0 ml IV STAT PRN; Protocol PRN Reason: Hypoglycemia Protocol Dextrose (Glutose 15) 0 gm PO ONCE PRN; Protocol PRN Reason: Hypoglycemia Protocol Enoxaparin Sodium (Lovenox) 40 mg SC DAILY [facility] PRN Reason: Protocol Last Admin: 10/08/17 15:15 Dose: 40 mg Glucagon (Glucagen Diagnostic Kit) 0 mg IM STAT PRN; Protocol PRN Reason: Hypoglycemia Protocol Hydromorphone HCl (Dilaudid) 0.5 mg IVP Q3H PRN PRN Reason: Pain, Mild (1-3) Last Admin: 10/08/17 11:20 Dose: 0.5 mg Ciprofloxacin (Cipro 400mg/200ml Dsw) 400 mg in 200 mls @ 200 mls/hr IVPB Q12 [facility] PRN Reason: Protocol Last Admin: 10/08/17 20:57 Dose: 200 mls/hr Metronidazole (Flagyl 500mg/100ml Ns) 100 mls @ 100 mls/hr IVPB Q8 [facility] PRN Reason: Protocol Last Admin: 10/09/17 00:24 Dose: 100 mls/hr Insulin Human Regular (Humulin R) 0 units SC ACHS [facility] PRN Reason: Protocol Last Admin: 10/08/17 22:00 Dose: Not Given Ondansetron HCl (Zofran Inj) 4 mg IVP Q4 PRN PRN Reason: Nausea/Vomiting - Labs Labs: 10/09/17 05:20 10/09/17 05:20 - Constitutional Appears: Non-toxic, No Acute Distress - Head Exam Head Exam: ATRAUMATIC, NORMAL INSPECTION, NORMOCEPHALIC - Eye Exam Eye Exam: EOMI, PERRL. absent: Scleral icterus - ENT Exam ENT Exam: Mucous Membranes Moist - Respiratory Exam Respiratory Exam: Clear to Ausculation Bilateral, NORMAL BREATHING PATTERN. absent: Rales, Rhonchi, Wheezes - Cardiovascular Exam Cardiovascular Exam: REGULAR RHYTHM, RRR, +S1, +S2 - GI/Abdominal Exam GI & Abdominal Exam: Soft, Tenderness (RUQ), Normal Bowel Sounds. absent: Guarding, Rebound - Extremities Exam Extremities Exam: Normal Capillary Refill. absent: Calf Tenderness, Pedal Edema - Neurological Exam Neurological Exam: Alert, Awake, Oriented x3 - Psychiatric Exam Psychiatric exam: Normal Affect, Normal Mood - Skin Skin Exam: Dry, Warm Assessment and Plan - Assessment and Plan (Free Text) Assessment: 52 y/o F with PMH including NIDDM2, HLD and cholelithiasis presented with RUQ pain associated with nausea/vomiting and admitted for acute cholecystitis. Plan: Acute Cholecystitis without choledocholithiasis -Patient remains afebrile. -Leukocytosis resolved. WBC today 6.1 -U/S revealed dilated CBD with no choledocholithiasis, however cholelithiasis is present -MRCP detected dilated CBD with no stones within bile duct -General surgery consultation appreciated. -Due to suspicion for possible distal bile duct stone, GI was consulted, who plans for ERCP tomorrow -Zosyn (Given 10/07-10/08) -Ciprofloxacin 400mg IV Q12, Flagyl 500mg Q8h (Started 10/08, Current day 2) -Zofran 4mg IV Q4h prn nausea -Dilaudid 0.5mg IV Q3h prn -Will remain NPO NIDDM2 -Last HgbA1c: 7.0% in 09/2017 -Hold home metformin 500mg bid -Low dose ISS while in house -ACCUchecks -Hypoglycemia protocol DVT Prophylaxis -Lovenox 40mg sc daily -SCDs
[2017-10-09] MEDS: Insulin Regular 100 units/ml SC SCH ×4 (08:33→21:45)
[2017-10-09] MEDS: Enoxaparin 40 mg Syringe SC SCH (08:34)
[2017-10-09] MEDS: Ciprofloxacin 400mg/200ml D5W 400 MG/200 ML BAG IVPB SCH ×2 (08:34→21:42)
--- NOTE | 2017-10-09 08:51 | CP.PCM.PN ---
Subjective - Date & Time of Evaluation Date of Evaluation: 10/09/17 Time of Evaluation: 06:35 - Subjective Subjective: General Surgery: Dr Muller Pt S&E. No acute events overnight. nursing notes reviewed. Admits symptoms have improved. Minimal pain, well controlled. Denies n/v, f/c, sob or chest pain. MRCP shows no stones in the CBD Objective - Vital Signs/Intake and Output Vital Signs (last 24 hours): Temp Pulse Resp BP Pulse Ox 98.4 F 63 19 115/71 97 10/09/17 00:00 10/09/17 00:00 10/09/17 00:00 10/09/17 00:00 10/09/17 00:00 - Medications Medications: Current Medications Dextrose (Dextrose 50% Inj) 0 ml IV STAT PRN; Protocol PRN Reason: Hypoglycemia Protocol Dextrose (Glutose 15) 0 gm PO ONCE PRN; Protocol PRN Reason: Hypoglycemia Protocol Enoxaparin Sodium (Lovenox) 40 mg SC DAILY SCOTT PRN Reason: Protocol Last Admin: 10/09/17 08:34 Dose: 40 mg Glucagon (Glucagen Diagnostic Kit) 0 mg IM STAT PRN; Protocol PRN Reason: Hypoglycemia Protocol Hydromorphone HCl (Dilaudid) 0.5 mg IVP Q3H PRN PRN Reason: Pain, Mild (1-3) Last Admin: 10/08/17 11:20 Dose: 0.5 mg Ciprofloxacin (Cipro 400mg/200ml Dsw) 400 mg in 200 mls @ 200 mls/hr IVPB Q12 SCOTT PRN Reason: Protocol Last Admin: 10/09/17 08:34 Dose: 200 mls/hr Metronidazole (Flagyl 500mg/100ml Ns) 100 mls @ 100 mls/hr IVPB Q8 SCOTT PRN Reason: Protocol Last Admin: 10/09/17 08:34 Dose: 100 mls/hr Insulin Human Regular (Humulin R) 0 units SC ACHS SCOTT PRN Reason: Protocol Last Admin: 10/09/17 08:33 Dose: Not Given Ondansetron HCl (Zofran Inj) 4 mg IVP Q4 PRN PRN Reason: Nausea/Vomiting - Labs Labs: 10/09/17 05:20 10/09/17 05:20 - Constitutional Appears: Non-toxic, No Acute Distress - Head Exam Head Exam: ATRAUMATIC - Eye Exam Eye Exam: EOMI - ENT Exam ENT Exam: Mucous Membranes Moist - Respiratory Exam Respiratory Exam: NORMAL BREATHING PATTERN. absent: Accessory Muscle Use, Respiratory Distress - Cardiovascular Exam Cardiovascular Exam: +S1, +S2. absent: Bradycardia, Tachycardia - GI/Abdominal Exam GI & Abdominal Exam: Soft, Tenderness. absent: Distended, Firm, Guarding, Rigid Additional comments: Tender to palpation in RUQ - Neurological Exam Neurological Exam: Alert, Awake, Oriented x3 - Skin Skin Exam: Intact, Warm Assessment and Plan - Assessment and Plan (Free Text) Assessment: 52F w/ acute cholecystitis Plan: MRCP showed no stones in CBD CLD for today, NPO @ [place] Pre-op abx IVF d/w Dr. Muller surgical attending PGY1
--- NOTE | 2017-10-09 10:38 | RAD ---
PROCEDURE: CHEST RADIOGRAPH, 1 VIEW HISTORY: pre-op for surgery tomorrow COMPARISON: Chest radiographs 09/10/2015. FINDINGS: LUNGS: No acute infiltrate is identified bilaterally. PLEURA: No pneumothorax or pleural fluid seen. CARDIOVASCULAR: Normal. OSSEOUS STRUCTURES: No significant abnormalities. VISUALIZED UPPER ABDOMEN: Normal. OTHER FINDINGS: None. IMPRESSION: No interval acute cardiopulmonary disease appreciated.
--- NOTE | 2017-10-09 17:21 | CP.PCM.PN ---
Subjective - Date & Time of Evaluation Date of Evaluation: 10/09/17 Time of Evaluation: 17:19 - Subjective Subjective: Patient wtill with moderate pain. She rates it 4/10. Objective - Vital Signs/Intake and Output Vital Signs (last 24 hours): Temp Pulse Resp BP Pulse Ox 98.8 F 79 18 118/72 98 10/09/17 16:51 10/09/17 16:51 10/09/17 16:51 10/09/17 16:51 10/09/17 16:51 - Medications Medications: Current Medications Dextrose (Dextrose 50% Inj) 0 ml IV STAT PRN; Protocol PRN Reason: Hypoglycemia Protocol Dextrose (Glutose 15) 0 gm PO ONCE PRN; Protocol PRN Reason: Hypoglycemia Protocol Enoxaparin Sodium (Lovenox) 40 mg SC DAILY SCOTT PRN Reason: Protocol Last Admin: 10/09/17 08:34 Dose: 40 mg Glucagon (Glucagen Diagnostic Kit) 0 mg IM STAT PRN; Protocol PRN Reason: Hypoglycemia Protocol Hydromorphone HCl (Dilaudid) 0.5 mg IVP Q3H PRN PRN Reason: Pain, Mild (1-3) Last Admin: 10/08/17 11:20 Dose: 0.5 mg Ciprofloxacin (Cipro 400mg/200ml Dsw) 400 mg in 200 mls @ 200 mls/hr IVPB Q12 SCOTT PRN Reason: Protocol Last Admin: 10/09/17 08:34 Dose: 200 mls/hr Metronidazole (Flagyl 500mg/100ml Ns) 100 mls @ 100 mls/hr IVPB Q8 SCOTT PRN Reason: Protocol Last Admin: 10/09/17 16:52 Dose: 100 mls/hr Sodium Chloride (Sodium Chloride 0.9%) 500 mls @ 60 mls/hr IV .Q8H20M SCOTT Insulin Human Regular (Humulin R) 0 units SC ACHS SCOTT PRN Reason: Protocol Last Admin: 10/09/17 16:51 Dose: Not Given Ondansetron HCl (Zofran Inj) 4 mg IVP Q4 PRN PRN Reason: Nausea/Vomiting - Labs Labs: 10/09/17 05:20 10/09/17 05:20 - Head Exam Head Exam: ATRAUMATIC - Eye Exam Eye Exam: Normal appearance - ENT Exam ENT Exam: Mucous Membranes Moist - Neck Exam Neck Exam: Full ROM - Respiratory Exam Respiratory Exam: Clear to Ausculation Bilateral - Cardiovascular Exam Cardiovascular Exam: REGULAR RHYTHM, +S1, +S2 - GI/Abdominal Exam GI & Abdominal Exam: Soft, Tenderness Additional comments: tender epigastrum and RUQ. Assessment and Plan (1) Abdominal pain Assessment & Plan: Ongoing abdominal pain. Possible retained stone /papiilary stenosis. ERCP tomorrow. Status: Acute
[2017-10-09] MEDS: Sodium Chloride 0.9% 500 ML IV SCH (21:30)
[2017-10-10] MEDS: metroNIDAZOLE 500mg/100ml NS 100 ML IVPB SCH ×3 (01:07→16:39)
[2017-10-10] MEDS: Sodium Chloride 0.9% 500 ML IV SCH ×3 (06:22→22:30)
[2017-10-10 06:37] LABS: BASO % 0.4 % (0.0-2.0); EOS # 0.1 K/uL (0.0-0.7); EOS % 1.8 % (0.0-4.0); LYMPH # 2.2 K/uL (1.0-4.3); LYMPH % 37.7 % (20.0-40.0); MEAN CELL VOLUME 89.5 fl (81.0-99.0); MEAN CORPUSCULAR HGB CONC 33.5 g/dL (33.0-37.0); MEAN PLATELET VOLUME 10.1 fl (7.2-11.7); MONO # 0.6 K/uL (0.0-0.8); MONO % 10.9 % (0.0-10.0); NEUT # 2.9 K/uL (1.8-7.0); NEUT % 49.2 % (50.0-75.0); NRBC % 0.3 % (0.0-0.0); RBC 4.34 Mil/uL (3.80-5.20); RED CELL DISTRIBUTION WIDTH 13.4 % (11.5-14.5); WHITE BLOOD COUNT 5.9 K/uL (4.8-10.8)
[2017-10-10 06:52] LABS: ALB/GLOB RATIO 1.1 (1.0-2.1); ALBUMIN 3.9 g/dL (3.5-5.0); ALT/SGPT 193 U/L (9-52); AST/SGOT 65 U/L (14-36); BLOOD UREA NITROGEN 6 mg/dl (7-17); GFR AFRICAN-AMERICAN > 60; GFR NON-AFRICAN AMERICAN > 60
[2017-10-10] MEDS: Insulin Regular 100 units/ml SC SCH ×4 (08:21→22:02)
--- NOTE | 2017-10-10 08:44 | CP.PCM.PN ---
Subjective - Date & Time of Evaluation Date of Evaluation: 10/10/17 Time of Evaluation: 07:25 - Subjective Subjective: General Surgery Dr. Muller Pt S&E @bedside. NAEO per nursing. Pt sleeping during rounds. Plan for ERCP later today. Objective - Vital Signs/Intake and Output Vital Signs (last 24 hours): Temp Pulse Resp BP Pulse Ox 98.1 F 80 18 99/61 L 97 10/10/17 08:12 10/10/17 08:12 10/10/17 08:12 10/10/17 08:12 10/10/17 08:12 - Medications Medications: Current Medications Dextrose (Dextrose 50% Inj) 0 ml IV STAT PRN; Protocol PRN Reason: Hypoglycemia Protocol Dextrose (Glutose 15) 0 gm PO ONCE PRN; Protocol PRN Reason: Hypoglycemia Protocol Enoxaparin Sodium (Lovenox) 40 mg SC DAILY SCOTT PRN Reason: Protocol Last Admin: 10/09/17 08:34 Dose: 40 mg Glucagon (Glucagen Diagnostic Kit) 0 mg IM STAT PRN; Protocol PRN Reason: Hypoglycemia Protocol Hydromorphone HCl (Dilaudid) 0.5 mg IVP Q3H PRN PRN Reason: Pain, Mild (1-3) Last Admin: 10/08/17 11:20 Dose: 0.5 mg Ciprofloxacin (Cipro 400mg/200ml Dsw) 400 mg in 200 mls @ 200 mls/hr IVPB Q12 SCOTT PRN Reason: Protocol Last Admin: 10/09/17 21:42 Dose: 200 mls/hr Metronidazole (Flagyl 500mg/100ml Ns) 100 mls @ 100 mls/hr IVPB Q8 SCOTT PRN Reason: Protocol Last Admin: 10/10/17 01:07 Dose: 100 mls/hr Sodium Chloride (Sodium Chloride 0.9%) 500 mls @ 60 mls/hr IV .Q8H20M SCOTT Last Admin: 10/10/17 06:22 Dose: Not Given Insulin Human Regular (Humulin R) 0 units SC ACHS SCOTT PRN Reason: Protocol Last Admin: 10/10/17 08:21 Dose: Not Given Ondansetron HCl (Zofran Inj) 4 mg IVP Q4 PRN PRN Reason: Nausea/Vomiting - Labs Labs: 10/10/17 05:40 10/10/17 05:40 - Constitutional Appears: Non-toxic, No Acute Distress - Head Exam Head Exam: NORMAL INSPECTION - Eye Exam Eye Exam: Normal appearance - ENT Exam ENT Exam: Mucous Membranes Moist - Respiratory Exam Respiratory Exam: NORMAL BREATHING PATTERN. absent: Accessory Muscle Use, Respiratory Distress - GI/Abdominal Exam GI & Abdominal Exam: Soft - Extremities Exam Extremities Exam: Normal Inspection - Skin Skin Exam: Dry, Intact, Normal Color, Warm Assessment and Plan - Assessment and Plan (Free Text) Assessment: 52 y/o F w/ cholecystitis - MRCP read as no choledocholithiasis, however Dr. Muller disagrees and requesting ERCP - plan for ERCP today w/ GI - cont NPO - cont pain management - Surgery today vs tomorrow for laparoscopic cholecystectomy - consent to be obtained Pt discussed w/ Dr. Renzo Rinaldi DO PGY2
[2017-10-10] MEDS: Ciprofloxacin 400mg/200ml D5W 400 MG/200 ML BAG IVPB SCH ×2 (09:17→21:19)
[2017-10-10] MEDS ORDERED: Glucagon Recombinant 1 mg Inj ONE ×2 (10:12→13:22)
[2017-10-10] MEDS ORDERED: Indomethacin 50 MG Suppository PR ONE ×4 (10:13→12:40)
[2017-10-10] MEDS ORDERED: Iohexol 240 (50 ml) ONE (10:13)
--- NOTE | 2017-10-10 10:29 | CP.PCM.PN ---
Subjective - Date & Time of Evaluation Date of Evaluation: 10/10/17 Time of Evaluation: 07:20 - Subjective Subjective: Patient seen and examined at bedside with family, Patient is NPO and admits improved pain and well controlled on pain medication. Patient denies any chest pain, SOB, Palpitations, urinary symptoms or n/v/f/d. Objective - Vital Signs/Intake and Output Vital Signs (last 24 hours): Temp Pulse Resp BP Pulse Ox 98.1 F 80 18 99/61 L 97 10/10/17 08:12 10/10/17 08:12 10/10/17 08:12 10/10/17 08:12 10/10/17 08:12 - Medications Medications: Current Medications Dextrose (Dextrose 50% Inj) 0 ml IV STAT PRN; Protocol PRN Reason: Hypoglycemia Protocol Dextrose (Glutose 15) 0 gm PO ONCE PRN; Protocol PRN Reason: Hypoglycemia Protocol Enoxaparin Sodium (Lovenox) 40 mg SC DAILY SCOTT PRN Reason: Protocol Last Admin: 10/09/17 08:34 Dose: 40 mg Glucagon (Glucagen Diagnostic Kit) 0 mg IM STAT PRN; Protocol PRN Reason: Hypoglycemia Protocol Hydromorphone HCl (Dilaudid) 0.5 mg IVP Q3H PRN PRN Reason: Pain, Mild (1-3) Last Admin: 10/08/17 11:20 Dose: 0.5 mg Ciprofloxacin (Cipro 400mg/200ml Dsw) 400 mg in 200 mls @ 200 mls/hr IVPB Q12 SCOTT PRN Reason: Protocol Last Admin: 10/10/17 09:17 Dose: 200 mls/hr Metronidazole (Flagyl 500mg/100ml Ns) 100 mls @ 100 mls/hr IVPB Q8 SCOTT PRN Reason: Protocol Last Admin: 10/10/17 09:17 Dose: 100 mls/hr Sodium Chloride (Sodium Chloride 0.9%) 500 mls @ 60 mls/hr IV .Q8H20M [facility] Last Admin: 10/10/17 06:22 Dose: Not Given Indomethacin (Indocin Suppository) 100 mg [place] ONCE ONE Stop: 10/10/17 12:01 Insulin Human Regular (Humulin R) 0 units SC ACHS SCOTT PRN Reason: Protocol Last Admin: 10/10/17 08:21 Dose: Not Given Ondansetron HCl (Zofran Inj) 4 mg IVP Q4 PRN PRN Reason: Nausea/Vomiting - Labs Labs: 10/10/17 05:40 10/10/17 05:40 - Constitutional Appears: No Acute Distress - Head Exam Head Exam: ATRAUMATIC - Eye Exam Eye Exam: Normal appearance Pupil Exam: NORMAL ACCOMODATION - ENT Exam ENT Exam: Mucous Membranes Moist - Neck Exam Neck Exam: Normal Inspection - Respiratory Exam Respiratory Exam: Clear to Ausculation Bilateral - Cardiovascular Exam Cardiovascular Exam: REGULAR RHYTHM - GI/Abdominal Exam GI & Abdominal Exam: Soft, Tenderness (RUQ), Normal Bowel Sounds - Neurological Exam Neurological Exam: Alert, Awake, Oriented x3 - Psychiatric Exam Psychiatric exam: Normal Affect - Skin Skin Exam: Normal Color Assessment and Plan - Assessment and Plan (Free Text) Assessment: 52 y/o F with PMH including NIDDM2, HLD and cholelithiasis presented with RUQ pain associated with nausea/vomiting and admitted for acute cholecystitis. Acute Cholecystitis without choledocholithiasis -Patient remains afebrile. -Leukocytosis resolved. WBC today 5.9 -U/S revealed dilated CBD with no choledocholithiasis, however cholelithiasis is present -MRCP detected dilated CBD with no stones within bile duct -General surgery consultation appreciated. -Due to suspicion for possible distal bile duct stone, GI was consulted, who plans for ERCP TODAY -Zosyn (Given 10/07-10/08) -Ciprofloxacin 400mg IV Q12, Flagyl 500mg Q8h (Started 10/08, Current day 3) -Zofran 4mg IV Q4h prn nausea -Dilaudid 0.5mg IV Q3h prn -Will remain NPO Urine culture positive, Grop B - Patient is asymptomatic - WBC 5.9 - Susceptible Amp, peni and vanco (no cipro mentioned) - Continue Cipro for now, if symptomatic change or add ampicillin - Follow up urine culture 10/10 Elevated transaminases - Asymptomatic, Possibly due to acute cholecystitis - AST/ALT: 65/193 - follow up CMP before discharge NIDDM2 -Last HgbA1c: 7.0% in 09/2017 -Hold home metformin 500mg bid -Low dose ISS while in house -ACCUchecks -Hypoglycemia protocol DVT Prophylaxis -Lovenox 40mg sc daily -SCDs
[2017-10-10] MEDS ORDERED: Chlorhexidine Gluconate 1 APPL/PKT TP ONE (10:30)
[2017-10-10] MEDS ORDERED: Lactated Ringer's 1,000 ML IV ONE (11:39)
[2017-10-10] MEDS ORDERED: Propofol 10 mg/ml Inj (20 ML) ONE (12:33)
[2017-10-10] MEDS ORDERED: Midazolam 2 MG/2 ML VIAL ONE (12:33)
--- NOTE | 2017-10-10 21:22 | CARD ---
APPROVED REPORT EKG Measurement Heart [id number] <Conclusion> Poor data quality, interpretation may be adversely affected Normal sinus rhythm Normal ECG
[2017-10-11] MEDS: metroNIDAZOLE 500mg/100ml NS 100 ML IVPB SCH ×3 (00:22→15:59)
[2017-10-11] MEDS: Insulin Regular 100 units/ml SC SCH ×4 (06:43→22:10)
--- NOTE | 2017-10-11 06:50 | CP.PCM.PN ---
Addendum entered and electronically signed by Tomy Zee MD 10/11/17 19:50 : Patient seen on POD #0, appears to be doing well tolerated the laproscopic cholecystectomy well. Pain is controlled with medication. Complains of some throat discomfort from the intubation. Otherwise as no other complaints. Has tolerated liquids, however states she has discomfort on swallowing. Denies any nausea or vomiting. Patient has been urinating without any difficulty. Has not passed any gas or had a bowl movement yet. Gen: NAD CVS: RRR, S1s2 heard no M/R/G Resp: CTAB no W/R/R Abd: Soft, mild diffuse tenderness, no guarding or rigidity . Dressing appears C /D/I Ext:Cap refill < 2 sec, motor and sensation intact. A/P - C/W current plan as ordered - Will restart DVE prophylaxis - Cepacol for throat irritation Original Note: Subjective - Date & Time of Evaluation Date of Evaluation: 10/11/17 Time of Evaluation: 07:20 - Subjective Subjective: Patient was seen and examined this morning, NAD. patient was c/o abdominal pain (pain meds given right before my exam). Patient is NPO, denies any vomiting, nausea, chest pain, dizziness, SOB, skin color changes or urinary symptoms. s/p ERCP Objective - Vital Signs/Intake and Output Vital Signs (last 24 hours): Temp Pulse Resp BP Pulse Ox 98.4 F 75 18 101/61 96 10/11/17 00:35 10/11/17 00:35 10/11/17 00:35 10/11/17 00:35 10/11/17 00:35 Intake and Output: 10/10/17 10/11/17 18:59 06:59 Intake Total 300 Balance 300 - Medications Medications: Current Medications Dextrose (Dextrose 50% Inj) 0 ml IV STAT PRN; Protocol PRN Reason: Hypoglycemia Protocol Dextrose (Glutose 15) 0 gm PO ONCE PRN; Protocol PRN Reason: Hypoglycemia Protocol Enoxaparin Sodium (Lovenox) 40 mg SC DAILY SCOTT PRN Reason: Protocol Last Admin: 10/09/17 08:34 Dose: 40 mg Glucagon (Glucagen Diagnostic Kit) 0 mg IM STAT PRN; Protocol PRN Reason: Hypoglycemia Protocol Hydromorphone HCl (Dilaudid) 0.5 mg IVP Q3H PRN PRN Reason: Pain, Mild (1-3) Last Admin: 10/11/17 00:22 Dose: 0.5 mg Ciprofloxacin (Cipro 400mg/200ml Dsw) 400 mg in 200 mls @ 200 mls/hr IVPB Q12 SCOTT PRN Reason: Protocol Last Admin: 10/10/17 21:19 Dose: 200 mls/hr Metronidazole (Flagyl 500mg/100ml Ns) 100 mls @ 100 mls/hr IVPB Q8 SCOTT PRN Reason: Protocol Last Admin: 10/11/17 00:22 Dose: 100 mls/hr Sodium Chloride (Sodium Chloride 0.9%) 500 mls @ 60 mls/hr IV .Q8H20M SCOTT Last Admin: 10/10/17 22:30 Dose: Not Given Insulin Human Regular (Humulin R) 0 units SC ACHS SCOTT PRN Reason: Protocol Last Admin: 10/11/17 06:43 Dose: Not Given Ondansetron HCl (Zofran Inj) 4 mg IVP Q4 PRN PRN Reason: Nausea/Vomiting - Labs Labs: 10/10/17 05:40 10/10/17 05:40 - Constitutional Appears: No Acute Distress - Head Exam Head Exam: NORMAL INSPECTION - Eye Exam Eye Exam: Normal appearance - ENT Exam ENT Exam: Mucous Membranes Moist - Neck Exam Neck Exam: Full ROM - Respiratory Exam Respiratory Exam: Clear to Ausculation Bilateral, NORMAL BREATHING PATTERN - Cardiovascular Exam Cardiovascular Exam: REGULAR RHYTHM - GI/Abdominal Exam GI & Abdominal Exam: Soft, Tenderness (RUQ), Normal Bowel Sounds - Neurological Exam Neurological Exam: Alert, Awake, Oriented x3 - Psychiatric Exam Psychiatric exam: Normal Affect - Skin Skin Exam: Normal Color Assessment and Plan - Assessment and Plan (Free Text) Assessment: A/P: 52 y/o F with PMH including NIDDM2, HLD and cholelithiasis presented with RUQ pain associated with nausea/vomiting and admitted for acute cholecystitis. patient is s/p ERCP and stent placement, Cholecystoctomy today Acute Cholecystitis without choledocholithiasis -Patient remains afebrile. -Leukocytosis resolved. WBC yesterday 5.9 -U/S revealed dilated CBD with no choledocholithiasis, however cholelithiasis is present -MRCP detected dilated CBD with no stones within bile duct -ERCP: no stones, Stent placement -General surgery consultation appreciated. -Zosyn (Given 10/07-10/08) -Ciprofloxacin 400mg IV Q12, Flagyl 500mg Q8h (Started 10/08, Current day 4) -Zofran 4mg IV Q4h prn nausea -Dilaudid 0.5mg IV Q3h prn -Will remain NPO for Surgery today after 10:30 Urine culture positive, Grop B - Patient is asymptomatic - WBC 5.9 - Susceptible Amp, peni and vanco (no cipro mentioned) - Continue Cipro for now, if symptomatic change or add ampicillin - Follow up urine culture 10/10 Elevated transaminases - Asymptomatic, Possibly due to acute cholecystitis - AST/ALT: 65/193 - Hold Statin for now - follow up CMP before discharge NIDDM2 -Last HgbA1c: 7.0% in 09/2017 -Hold home metformin 500mg bid -Low dose ISS while in house -ACCUchecks -Hypoglycemia protocol DVT Prophylaxis -Lovenox 40mg sc daily (Hold today) -SCDs
[2017-10-11] MEDS: Sodium Chloride 0.9% 500 ML IV SCH (07:45)
[2017-10-11] MEDS ORDERED: Lidocaine 1% Inj (20ml) ONE (09:08)
[2017-10-11] MEDS ORDERED: Bupivacaine 0.5% Inj(30mL) ONE (09:08)
[2017-10-11] MEDS: Ciprofloxacin 400mg/200ml D5W 400 MG/200 ML BAG IVPB SCH ×2 (09:56→20:39)
[2017-10-11] MEDS ORDERED: Ciprofloxacin 400mg/200ml D5W 400 MG/200 ML BAG IVPB ONE (10:07)
[2017-10-11] MEDS ORDERED: Midazolam 2 MG/2 ML VIAL ONE (10:38)
[2017-10-11] MEDS ORDERED: Succinylcholine 200 mg/10 ml Inj IV ONE (10:38)
[2017-10-11] MEDS ORDERED: Propofol 10 mg/ml Inj (20 ML) ONE ×2 (10:38→12:33)
[2017-10-11] MEDS ORDERED: Lactated Ringer's 1,000 ML IV ONE (10:39)
[2017-10-11] MEDS ORDERED: Rocuronium 10 mg/ml (5 ml) ONE (10:51)
[2017-10-11] MEDS ORDERED: Ciprofloxacin 400mg/200ml D5W IVPB ONE (10:55)
[2017-10-11] MEDS ORDERED: Neostigmine 1:1000 (1 mg/ml) Inj ONE (12:02)
[2017-10-11] MEDS ORDERED: Bupivacaine 0.5% 50 ML IJ ONE (12:07)
[2017-10-11] MEDS ORDERED: Sodium Chloride 0.9% 1,000 ML IV ONE ×2 (12:33→14:00)
[2017-10-11] MEDS ORDERED: HYDROmorphone 0.5 mg/0.5 ml ISec IVP PRN (12:39)
--- NOTE | 2017-10-11 12:40 | PCM.SURG1 ---
Surgeon's Initial Post Op Note - Surgeon's Notes Surgeon: Dr. Muller Licensed Therapist: Dr. Joyner PGY3, PGY1 Type of Anesthesia: General Endo Pre-Operative Diagnosis: Acute on chronic cholecystitis Operative Findings: inflammed gallbladder. For details see op note Post-Operative Diagnosis: as above Operation Performed: laparoscopic cholecystectomy Specimen/Specimens Removed: gallbladder Estimated Blood Loss: EBL {In ML}: 50 Drains Used: No Drains Date of Surgery/Procedure: 10/11/17 Time of Surgery/Procedure: 11:00
[2017-10-11] MEDS ORDERED: Sodium Chloride 0.9% 1,000 ML IV SCH (12:45)
[2017-10-11] MEDS ORDERED: Benzocaine/Menthol (Cepacol) Lozenge PO PRN (21:00)
[2017-10-12] MEDS: metroNIDAZOLE 500mg/100ml NS 100 ML IVPB SCH ×3 (00:22→16:33)
[2017-10-12] MEDS: Oxycodone/Acetaminophen 5/325 mg Tab PO PRN ×2 (00:26→08:55)
[2017-10-12] MEDS: Sodium Chloride 0.9% 500 ML IV SCH (00:29)
[2017-10-12 04:18] VITALS: RESP 20
[2017-10-12 05:39] VITALS: O2SAT 94
[2017-10-12 06:52] LABS: BASO % 0.1 % (0.0-2.0); EOS % 0.3 % (0.0-4.0); HEMOGLOBIN 12.8 g/dL (12.0-16.0); LYMPH # 1.5 K/uL (1.0-4.3); LYMPH % 13.9 % (20.0-40.0); MEAN CELL VOLUME 88.7 fl (81.0-99.0); MEAN CORPUSCULAR HEMOGLOBIN 30.3 pg (27.0-31.0); MEAN CORPUSCULAR HGB CONC 34.2 g/dL (33.0-37.0); MEAN PLATELET VOLUME 10.1 fl (7.2-11.7); MONO % 9.2 % (0.0-10.0); NEUT # 8.2 K/uL (1.8-7.0); NEUT % 76.5 % (50.0-75.0); NRBC % 0.1 % (0.0-0.0); RBC 4.24 Mil/uL (3.80-5.20); RED CELL DISTRIBUTION WIDTH 13.6 % (11.5-14.5); WHITE BLOOD COUNT 10.7 K/uL (4.8-10.8)
[2017-10-12] MEDS: Insulin Regular 100 units/ml SC SCH ×3 (07:03→16:34)
[2017-10-12 07:09] LABS: ALBUMIN 3.4 g/dL (3.5-5.0); ALT/SGPT 228 U/L (9-52); AST/SGOT 146 U/L (14-36); BLOOD UREA NITROGEN 5 mg/dl (7-17); CALCIUM 8.5 mg/dL (8.4-10.2); GFR AFRICAN-AMERICAN > 60; GFR NON-AFRICAN AMERICAN > 60
[2017-10-12] MEDS: Ciprofloxacin 400mg/200ml D5W 400 MG/200 ML BAG IVPB SCH (08:57)
[2017-10-12] MEDS ORDERED: Potassium Chloride 20 mEq ER Tab PO ONE (10:15)
--- NOTE | 2017-10-12 10:35 | CP.PCM.PN ---
Subjective - Date & Time of Evaluation Date of Evaluation: 10/12/17 Time of Evaluation: 07:30 - Subjective Subjective: Patient seen and examined this morning on chair, mild discomfort due to pain. Patient is s/p lap avinash, POD#1, tolerating PO liquid diet, admits pain 6/10 around surgical sites, ambulating, voiding freely, denies BM or flatus. Patient denies any dizziness, SOB, chest pain, urinary symptoms or LE pain. Febrile overnight, currently afebrile Objective - Vital Signs/Intake and Output Vital Signs (last 24 hours): Temp Pulse Resp BP Pulse Ox 99.3 F 85 20 106/65 94 L 10/12/17 07:56 10/12/17 07:56 10/12/17 07:56 10/12/17 07:56 10/12/17 07:56 - Medications Medications: Current Medications Benzocaine/Menthol (Cepacol Sore Throat) 1 lizbeth PO Q3 PRN PRN Reason: Sore Throat Last Admin: 10/12/17 09:02 Dose: 1 lizbeth Dextrose (Dextrose 50% Inj) 0 ml IV STAT PRN; Protocol PRN Reason: Hypoglycemia Protocol Dextrose (Glutose 15) 0 gm PO ONCE PRN; Protocol PRN Reason: Hypoglycemia Protocol Enoxaparin Sodium (Lovenox) 40 mg SC DAILY SCOTT PRN Reason: Protocol Last Admin: 10/09/17 08:34 Dose: 40 mg Glucagon (Glucagen Diagnostic Kit) 0 mg IM STAT PRN; Protocol PRN Reason: Hypoglycemia Protocol Hydromorphone HCl (Dilaudid) 0.5 mg IVP Q4 PRN PRN Reason: Pain, moderate (4-7) Ciprofloxacin (Cipro 400mg/200ml Dsw) 400 mg in 200 mls @ 200 mls/hr IVPB Q12 SCOTT PRN Reason: Protocol Last Admin: 10/12/17 08:57 Dose: 200 mls/hr Metronidazole (Flagyl 500mg/100ml Ns) 100 mls @ 100 mls/hr IVPB Q8 SCOTT PRN Reason: Protocol Last Admin: 10/12/17 08:57 Dose: 100 mls/hr Sodium Chloride (Sodium Chloride 0.9%) 500 mls @ 60 mls/hr IV .Q8H20M [facility] Last Admin: 10/12/17 00:29 Dose: Not Given Sodium Chloride (Sodium Chloride 0.9%) 1,000 mls @ 1,000 mls/hr IV .Q1H SCOTT Stop: 10/12/17 12:37 Insulin Human Regular (Humulin R) 0 units SC ACHS SCOTT PRN Reason: Protocol Last Admin: 10/12/17 07:03 Dose: Not Given Ondansetron HCl (Zofran Inj) 4 mg IVP Q4 PRN PRN Reason: Nausea/Vomiting Oxycodone/Acetaminophen (Percocet 5/325 Mg Tab) 1 tab PO Q4 PRN PRN Reason: Pain, Mild (1-3) Stop: 10/14/17 20:35 Last Admin: 10/12/17 08:55 Dose: 1 tab Potassium Chloride (K-Dur 20 Meq Er Tab) 20 meq PO ONCE ONE Stop: 10/12/17 10:16 - Labs Labs: 10/12/17 05:35 10/12/17 05:35 - Constitutional Appears: No Acute Distress - Head Exam Head Exam: NORMAL INSPECTION - Eye Exam Eye Exam: Normal appearance - ENT Exam ENT Exam: Mucous Membranes Moist - Neck Exam Neck Exam: Normal Inspection - Respiratory Exam Respiratory Exam: Clear to Ausculation Bilateral - Cardiovascular Exam Cardiovascular Exam: REGULAR RHYTHM - GI/Abdominal Exam GI & Abdominal Exam: Soft, Tenderness (RUQ) - Extremities Exam Extremities Exam: Normal Inspection - Back Exam Back Exam: NORMAL INSPECTION - Neurological Exam Neurological Exam: Alert, Awake, Oriented x3 - Psychiatric Exam Psychiatric exam: Normal Affect - Skin Skin Exam: Normal Color Assessment and Plan - Assessment and Plan (Free Text) Assessment: A/P: 52 y/o F with PMH including NIDDM2, HLD and cholelithiasis presented with RUQ pain associated with nausea/vomiting and admitted for acute cholecystitis. patient is s/p ERCP and stent placement, S/p POD #1 Lap Cholecystoctomy Acute Cholecystitis without choledocholithiasis, S/P Lap avinash, POD 1 -Patient remains afebrile. -Leukocytosis resolved. WBC yesterday 5.9 -U/S revealed dilated CBD with no choledocholithiasis, however cholelithiasis is present -MRCP detected dilated CBD with no stones within bile duct -ERCP: no stones, Stent placement -General surgery consultation appreciated. -S/p Lap Cholecystoctomy POD 1 -Zosyn (Given 2/23-10/08) -Ciprofloxacin 400mg IV Q12, Flagyl 500mg Q8h (Started 10/08, Current day 5) -Zofran 4mg IV Q4h prn nausea -Pain management, Dilaudid 0.5mg IV Q4h prn, Percocet PO Q4H PRN -Advance diet as tolerated -Will consider d/c today or tomorrow on Augmentin and Percocet Fever, unknown etiology - S/p POD1 - Fever 101.7 at 4am 10/12/17 - Afebrile currently Hypokalemia - K+ 3.1 today - Liquid diet, advance as tolerated - 20mcq KCL STAT given today - Will repeat BMP Urine culture positive, Grop B - Patient is asymptomatic - WBC 10.7 - Susceptible Amp, peni and vanco (no cipro mentioned) - Continue Cipro for now, if symptomatic change or add ampicillin - Follow up urine culture 10/10 Elevated transaminases - Asymptomatic, Possibly due to acute cholecystitis - AST/ALT: 65/193 - Hold Statin for now (Hold on discharge as well) - follow up CMP before discharge NIDDM2 -Last HgbA1c: 7.0% in 09/2017 -Hold home metformin 500mg bid (may start Metformin slowly after d/c)) -Low dose ISS while in house -ACCUchecks -Hypoglycemia protocol DVT Prophylaxis -Lovenox 40mg sc daily -Encourage ambulation -SCDs
[2017-10-12] MEDS: Enoxaparin 40 mg Syringe SC SCH (10:52)
--- NOTE | 2017-10-12 10:52 | RAD ---
PROCEDURE: Intraoperative fluoroscopy HISTORY: ERCP COMPARISON: Not available TECHNIQUE: Intraoperative fluoroscopy was provided for ERCP with papillotomy and biliary stent placement. Total time of fluoroscopy was 110.1 seconds. FINDINGS: Multiple fluoroscopic spot films are submitted. IMPRESSION: Fluoroscopy provided.
--- NOTE | 2017-10-12 11:46 | CP.PCM.PN ---
Subjective - Date & Time of Evaluation Date of Evaluation: 10/12/17 Time of Evaluation: 11:45 - Subjective Subjective: General Surgery Progress Note- Dr. Muller 52 y/o female seen and examined at bedside this morning. NAEO. Tolerating regular PO diet without difficulty. Admits to having a fever this morning but was given medicine for it and is feeling better. States she has a very small amount of pain where she had the incisions, but generally feels ok. Admits to passing flatus. Denies any bowel movements since surgery. Denies C/N/V/CP/SOB. Objective - Vital Signs/Intake and Output Vital Signs (last 24 hours): Temp Pulse Resp BP Pulse Ox 99.3 F 85 20 106/65 94 L 10/12/17 07:56 10/12/17 07:56 10/12/17 07:56 10/12/17 07:56 10/12/17 07:56 - Medications Medications: Current Medications Benzocaine/Menthol (Cepacol Sore Throat) 1 lizbeth PO Q3 PRN PRN Reason: Sore Throat Last Admin: 10/12/17 09:02 Dose: 1 lizbeth Dextrose (Dextrose 50% Inj) 0 ml IV STAT PRN; Protocol PRN Reason: Hypoglycemia Protocol Dextrose (Glutose 15) 0 gm PO ONCE PRN; Protocol PRN Reason: Hypoglycemia Protocol Enoxaparin Sodium (Lovenox) 40 mg SC DAILY SCOTT PRN Reason: Protocol Last Admin: 10/12/17 10:52 Dose: 40 mg Glucagon (Glucagen Diagnostic Kit) 0 mg IM STAT PRN; Protocol PRN Reason: Hypoglycemia Protocol Hydromorphone HCl (Dilaudid) 0.5 mg IVP Q4 PRN PRN Reason: Pain, moderate (4-7) Ciprofloxacin (Cipro 400mg/200ml Dsw) 400 mg in 200 mls @ 200 mls/hr IVPB Q12 SCOTT PRN Reason: Protocol Last Admin: 10/12/17 08:57 Dose: 200 mls/hr Metronidazole (Flagyl 500mg/100ml Ns) 100 mls @ 100 mls/hr IVPB Q8 SCOTT PRN Reason: Protocol Last Admin: 10/12/17 08:57 Dose: 100 mls/hr Sodium Chloride (Sodium Chloride 0.9%) 500 mls @ 60 mls/hr IV .Q8H20M SCOTT Last Admin: 10/12/17 00:29 Dose: Not Given Sodium Chloride (Sodium Chloride 0.9%) 1,000 mls @ 1,000 mls/hr IV .Q1H [facility] Stop: 10/12/17 12:37 Insulin Human Regular (Humulin R) 0 units SC ACHS SCOTT PRN Reason: Protocol Last Admin: 10/12/17 07:03 Dose: Not Given Ondansetron HCl (Zofran Inj) 4 mg IVP Q4 PRN PRN Reason: Nausea/Vomiting Oxycodone/Acetaminophen (Percocet 5/325 Mg Tab) 1 tab PO Q4 PRN PRN Reason: Pain, Mild (1-3) Stop: 10/14/17 20:35 Last Admin: 10/12/17 08:55 Dose: 1 tab - Labs Labs: 10/12/17 05:35 10/12/17 05:35 - Constitutional Appears: Well, Non-toxic, No Acute Distress - Head Exam Head Exam: ATRAUMATIC, NORMAL INSPECTION - Respiratory Exam Respiratory Exam: NORMAL BREATHING PATTERN. absent: Chest Wall Tenderness, Respiratory Distress - Cardiovascular Exam Cardiovascular Exam: REGULAR RHYTHM - GI/Abdominal Exam GI & Abdominal Exam: Soft. absent: Distended, Firm, Rigid, Rebound - Extremities Exam Extremities Exam: absent: Calf Tenderness - Neurological Exam Neurological Exam: Alert, Awake, Oriented x3 - Psychiatric Exam Psychiatric exam: Normal Affect, Normal Mood - Skin Skin Exam: Normal Color, Warm Assessment and Plan - Assessment and Plan (Free Text) Assessment: 52 y/o F 1 day s/p lap cholecystectomy Plan: -pt stable for d/c with po pain meds Percocet dispensed -ok for pt to remove bandages tomorrow; steri strips to be left until they fall off on their own -pt allowed to shower after bandages removed -no heavy lifting for 2-3 weeks -pt to f/u in Dr. Muller's office within 1 week
[2017-10-12 15:57] LABS: BLOOD UREA NITROGEN 5 mg/dl (7-17); GFR AFRICAN-AMERICAN > 60; GFR NON-AFRICAN AMERICAN > 60
[2017-10-12 16:26] VITALS: BP 106/68; PULSE 79; TEMP 98.5
[2017-10-12] MEDS ORDERED: Potassium Chloride 20 mEq ER Tab PO STA (17:04)
--- NOTE | 2017-10-12 18:03 | CP.PCM.DIS ---
Provider - Provider Date of Admission: 10/07/17 14:59 Attending physician: Olu Colon MD Primary care physician: [facility] Consults: Surgery, Dr. Renzo RUSH, Dr. Bill Time Spent in preparation of Discharge (in minutes): 40 Diagnosis - Discharge Diagnosis (1) Acute cholecystitis Status: Acute (2) S/P cholecystectomy Status: Acute (3) Hypokalemia Status: Acute (4) NIDDY (non-insulin dependent diabetes mellitus in young) Status: Chronic (5) Elevated liver enzymes Status: Acute (6) HLD (hyperlipidemia) Status: Acute Hospital Course - Lab Results Lab Results: Micro Results 10/10/17 07:00 Urine Urine Culture - Final No Growth (<1,000 CFU/ML) 10/07/17 18:00 Blood-Venous Blood Culture - Preliminary NO GROWTH AFTER 4 DAYS 10/07/17 13:40 Urine,Clean Catch Urine Culture - Final Beta Hemolytic Strep Group B Most Recent Lab Values WBC 10.7 K/uL (4.8-10.8) D 10/12/17 05:35 RBC 4.24 Mil/uL (3.80-5.20) 10/12/17 05:35 Hgb 12.8 g/dL (12.0-16.0) 10/12/17 05:35 Hct 37.6 % (34.0-47.0) 10/12/17 05:35 MCV 88.7 fl (81.0-99.0) 10/12/17 05:35 MCH 30.3 pg (27.0-31.0) 10/12/17 05:35 MCHC 34.2 g/dL (33.0-37.0) 10/12/17 05:35 RDW 13.6 % (11.5-14.5) 10/12/17 05:35 Plt Count 249 K/uL (130-400) 10/12/17 05:35 MPV 10.1 fl (7.2-11.7) 10/12/17 05:35 Neut % (Auto) 76.5 % (50.0-75.0) H 10/12/17 05:35 Lymph % (Auto) 13.9 % (20.0-40.0) L 10/12/17 05:35 [place] % (Auto) 9.2 % (0.0-10.0) 10/12/17 05:35 Eos % (Auto) 0.3 % (0.0-4.0) 10/12/17 05:35 Baso % (Auto) 0.1 % (0.0-2.0) 10/12/17 05:35 Neut # (Auto) 8.2 K/uL (1.8-7.0) H 10/12/17 05:35 Lymph # (Auto) 1.5 K/uL (1.0-4.3) 10/12/17 05:35 [place] # (Auto) 1.0 K/uL (0.0-0.8) H 10/12/17 05:35 Eos # (Auto) 0.0 K/uL (0.0-0.7) 10/12/17 05:35 Baso # (Auto) 0.0 K/uL (0.0-0.2) 10/12/17 05:35 Sodium 141 mmol/l (132-148) 10/12/17 14:23 Potassium 3.5 MMOL/L (3.6-5.0) L 10/12/17 14:23 Chloride 106 mmol/L (98-107) 10/12/17 14:23 Carbon Dioxide 25 mmol/L (22-30) 10/12/17 14:23 Anion Gap 14 (10-20) 10/12/17 14:23 BUN 5 mg/dl (7-17) L 10/12/17 14:23 Creatinine 0.6 mg/dl (0.7-1.2) L 10/12/17 14:23 Est GFR ( Amer) > 60 10/12/17 14:23 Est GFR (Non-Af Amer) > 60 10/12/17 14:23 POC Glucose (mg/dL) 151 mg/dL (65-110) H 10/12/17 15:50 Random Glucose 134 mg/dL (65-105) H 10/12/17 14:23 Calcium 8.0 mg/dL (8.4-10.2) L 10/12/17 14:23 Total Bilirubin 1.1 mg/dl (0.2-1.3) 10/12/17 05:35 AST 146 U/L (14-36) H D 10/12/17 05:35 ALT 228 U/L (9-52) H 10/12/17 05:35 Alkaline Phosphatase 123 U/L (38-126) 10/12/17 05:35 Troponin I < 0.0120 ng/mL (0.00-0.120) 10/07/17 13:15 Total Protein 6.8 G/DL (6.3-8.2) 10/12/17 05:35 Albumin 3.4 g/dL (3.5-5.0) L 10/12/17 05:35 Globulin 3.4 gm/dL (2.2-3.9) 10/12/17 05:35 Albumin/Globulin Ratio 1.0 (1.0-2.1) 10/12/17 05:35 Lipase 99 U/L (23-300) 10/09/17 05:20 Urine Color Yellow (YELLOW) 10/07/17 13:40 Urine Clarity Turbid (Clear) 10/07/17 13:40 Urine pH 5.0 (5.0-8.0) 10/07/17 13:40 Ur Specific [place] 1.035 (1.003-1.030) H 10/07/17 13:40 Urine Protein 100 mg/dL (NEGATIVE) 10/07/17 13:40 Urine Glucose (UA) Neg mg/dL (Normal) 10/07/17 13:40 Urine Ketones Trace mg/dL (NEGATIVE) 10/07/17 13:40 Urine Blood Negative (NEGATIVE) 10/07/17 13:40 Urine Nitrate Negative (NEGATIVE) 10/07/17 13:40 Urine Bilirubin Small (NEGATIVE) 10/07/17 13:40 Urine Urobilinogen 0.2-1.0 mg/dL (0.2-1.0) 10/07/17 13:40 Ur Leukocyte Esterase Trace Mya/uL (Negative) 10/07/17 13:40 Urine RBC (Auto) 21 /hpf (0-3) H 10/07/17 13:40 Urine Microscopic WBC 15 /hpf (0-5) H 10/07/17 13:40 Ur Squamous Epith Cells 3 /hpf (0-5) 10/07/17 13:40 Urine Bacteria Rare (<OCC) 10/07/17 13:40 - Hospital Course Hospital Course: 52 y/o F with PMH of NIDDM2, HLD and cholelithiasis presented with RUQ pain associated with nausea/vomiting and admitted for acute cholecystitis. patient is s/p MRCP, ERCP and stent placement in this admission, S/p Lap Cholecystoctomy on 10/12/17, POD1. Patient received Cipro and Flagyl for 5 days and discharged home with follow up appt with PMD and surgery. - Date & Time of H&P Date of H&P: 10/07/17 Time of H&P: 16:50 Discharge Exam - Head Exam Head Exam: ATRAUMATIC, NORMAL INSPECTION - Eye Exam Eye Exam: Normal appearance, PERRL Pupil Exam: NORMAL ACCOMODATION - ENT Exam ENT Exam: Mucous Membranes Moist - Respiratory Exam Respiratory Exam: Clear to PA & Lateral, NORMAL BREATHING PATTERN - Cardiovascular Exam Cardiovascular Exam: REGULAR RHYTHM - GI/Abdominal Exam GI & Abdominal Exam: Normal Bowel Sounds, Soft, Tenderness (Around RUQ) - Extremities Exam Extremities exam: full ROM - Back Exam Back exam: NORMAL INSPECTION - Neurological Exam Neurological exam: Alert, CN II-XII Intact, Oriented x3, Reflexes Normal - Psychiatric Exam Psychiatric exam: Normal Affect - Skin Skin Exam: Dry, Intact, Normal Color, Warm Discharge Plan - Discharge Medications Prescriptions: oxyCODONE/Acetaminophen [Percocet 5/325 mg Tab] 1 tab PO Q4 PRN #20 tab PRN Reason: Pain, Moderate (4-7) - Follow Up Plan Condition: STABLE Disposition: HOME/ ROUTINE Instructions: Cholecystectomy (DC), Cholecystectomy, Laparoscopic Surgery, Gallstones (DC), Oxycodone and Acetaminophen Additional Instructions: shaina con dr lisy herrera 6 a las 3pm-[facility] Referrals: [facility] [Outside] Markus Hassan DO [Resident] - Olu Bill MD [Staff Provider] - Blade Muller MD [Staff Provider] -
--- NOTE | 2017-10-19 21:05 | OP ---
PROCEDURE DATE: 10/11/2017 PREOPERATIVE DIAGNOSIS: Acute on chronic cholecystitis. POSTOPERATIVE DIAGNOSIS: Acute on chronic cholecystitis. OPERATION PERFORMED: Laparoscopic cholecystectomy. SURGEON: Blade Muller MD ASSISTANTS: Dr. Joyner and Dr. Atkins ESTIMATED BLOOD LOSS: 50 mL DESCRIPTION OF PROCEDURE: In the operating room, the patient was identified by name, name of procedure, laterality, my mary, the wrist bands, and number. In the operating room having been identified, the abdomen was prepped and draped and after the appropriate way, supraumbilical incision was made that was dissected down to the fascia. A Veress needle was inserted followed by the Visiport. The Visiport under direct vision, the xiphoid 5 and two lateral 5s were placed. In the appropriate position, the fundus and infundibulum were pulled up using Prestige clamps. Dissection at the infundibulum allowed identification rather rapidly of the cystic duct and cystic artery. The view of safety was achieved. Posterior dissection show nicely. The cystic artery was doubly clipped and divided as was the artery and the gallbladder taken off the liver bed using the cautery and harmonic scalpel as necessary. Irrigation was unremarkable. There was nothing else untoward, looking around, and was very pleased. The water was aspirated. There was no bleeding, no bile, and no injury that we can see. The trocars were removed, after the CO2 was removed and the incisions were closed with a stitch of 2-0 Vicryl and needle followed by Vicryl followed by subcuticular PDS and Dermabond. The patient was taken to recovery room in good condition after the sponge and needle counts were declared correct. Blade Muller MD MTDJose
== END 2017-10-12 18:42 | disposition home or self-care (01) | DRG 419 ==
LOC: H.ER 11:45 → H.ERHOLD 14:59 → H.MEDSURG1 19:31
PROVIDERS: ADMIT Family Medicine; ATTEND Family Medicine
PROC: 0F7D8DZ Dilation of Pancreatic Duct with Intraluminal Device, Via Natural or Artificial Opening Endoscopic (ICD-10-PCS; 2017-10-10)
PROC: BF14YZZ Fluoroscopy of Gallbladder, Bile Ducts and Pancreatic Ducts using Other Contrast (ICD-10-PCS; 2017-10-10)
PROC: 0F798ZZ Dilation of Common Bile Duct, Via Natural or Artificial Opening Endoscopic (ICD-10-PCS; 2017-10-10)
PROC: 0FT44ZZ Resection of Gallbladder, Percutaneous Endoscopic Approach (ICD-10-PCS; principal; 2017-10-11 10:45)
DX: K80.13 Calculus of gallbladder with acute and chronic cholecystitis with obstruction (principal); E03.9 Hypothyroidism, unspecified; E11.9 Type 2 diabetes mellitus without complications; E78.00 Pure hypercholesterolemia, unspecified; E78.5 Hyperlipidemia, unspecified; E87.6 Hypokalemia; R74.8 Abnormal levels of other serum enzymes; R50.9 Fever, unspecified

== ENCOUNTER 2018-03-02 03:54 | Emergency (ER) | payer SELFPAY ==
[2018-03-02 03:54] VITALS: BMI 33.6
[2018-03-02] MEDS ORDERED: Dexamethasone 10 MG in Sodium Chloride 0.9% 50 ML IV STA (04:18)
[2018-03-02] MEDS ORDERED: Sodium Chloride 0.9% 1,000 ML IV STA (04:18)
--- NOTE | 2018-03-02 04:33 | ED PDOC ---
HPI: CCC, URI, Sore Throat Time Seen by Provider: 03/02/18 03:56 Chief Complaint (Nursing): Fever Chief Complaint (Provider): Sore Throat/Fever History Per: Patient History/Exam Limitations: no limitations Onset/Duration Of Symptoms: Days (x2) Current Symptoms Are (Timing): Still Present Location Of Pain: Throat Associated Symptoms: denies: Nausea, Vomiting, Diarrhea Additional Complaint(s): Adina Montero is a 52 year old female with no past medical history who is presenting to the ED for evaluation of fever and sore throat, onset 2 days ago. Patient states that she has trouble swallowing and has been medicating with Advil with no relief of symptoms. She reports that she can swallow her own excretions though accompanied with pain, and tonight was unable to sleep tonight due to pain. Patient denies any vomiting, diarrhea, shortness of breath, or chest pain. PMD: none provided Past Medical History Reviewed: Historical Data, Nursing Documentation, Vital Signs Vital Signs: Last Vital Signs Temp 100.5 F H 03/02/18 04:09 Pulse 100 H 03/02/18 04:09 Resp 18 03/02/18 04:09 BP 107/68 03/02/18 04:09 Pulse Ox 97 03/02/18 04:36 - Medical History PMH: Hypercholesterolemia Denies: HIV, Chronic Kidney Disease - Surgical History Surgical History: No Surg Hx - Family History Family History: States: Unknown Family Hx - Social History Current smoker - smoking cessation education provided: No Alcohol: None Drugs: Denies - Home Medications Home Medications: Ambulatory Orders Medication Instructions Recorded Aspirin [Ecotrin] 81 mg PO DAILY 10/07/17 Atorvastatin [Lipitor] 40 mg PO DAILY 10/07/17 metFORMIN [glucOPHAGE] 500 mg PO BID 10/07/17 oxyCODONE/Acetaminophen [Percocet 1 tab PO Q4 PRN #20 tab 10/12/17 5/325 mg Tab] Amoxicillin/Clavulanate [Augmentin 1 tab PO BID #14 tab 03/02/18 875 MG-125 MG] - Allergies Allergies/Adverse Reactions: Allergies Allergy/AdvReac Type Severity Reaction Status Date / Time No Known Allergies Allergy Verified 03/22/17 10:11 Review of Systems ROS Statement: Except As Marked, All Systems Reviewed And Found Negative Constitutional: Positive for: Fever ENT: Positive for: Throat Pain Cardiovascular: Negative for: Chest Pain Respiratory: Negative for: Shortness of Breath Gastrointestinal: Negative for: Nausea, Vomiting, Diarrhea Physical Exam - Reviewed Nursing Documentation Reviewed: Yes Vital Signs Reviewed: Yes - Physical Exam Appears: Positive for: Non-toxic, Uncomfortable Head Exam: Positive for: ATRAUMATIC, NORMAL INSPECTION, NORMOCEPHALIC Skin: Positive for: Normal Color, Warm, DRY Eye Exam: Positive for: EOMI, Normal appearance, PERRL ENT: Positive for: Pharynx Is ((+) bilateral enlarged tonsils ), Tonsillar Exudate (3+), Other (mucous membranes dry, cervical lymphadenopathy) Neck: Positive for: Normal, Painless ROM Cardiovascular/Chest: Positive for: Regular Rate, Rhythm. Negative for: Murmur Respiratory: Positive for: Normal Breath Sounds. Negative for: Respiratory Distress Gastrointestinal/Abdominal: Positive for: Normal Exam, Soft. Negative for: Tenderness Extremity: Positive for: Normal ROM. Negative for: Deformity Neurologic/Psych: Positive for: Alert, Oriented. Negative for: Motor/Sensory Deficits - Laboratory Results Result Diagrams: 03/02/18 04:56 03/02/18 04:56 - ECG O2 Sat by Pulse Oximetry: 97 (RA) Pulse Ox Interpretation: Normal Medical Decision Making Medical Decision Making: Time: 4:18 Impression: 52 year old female with acute phsryngitis --Strep vs mono Plan: --CMP --Urine --ED Urine Dipstick --CBC --Decadron 50 ml IV --IV Fluids --Toradol 30 mg IV --Blood Culture --Infectious Mononucleosis --Rapid Strep Group A Antigen 5:36 --Labs reviewed with no clinically significant abnormalities except for mild leukocytosis. --Despite negative strep, will treat for strep throat due to string clinical suspicion. --Patient reports significant improvement in symptoms. --She is stable and ready for discharge upon provider evaluation. Scribe Attestation: Documented by Pao Woods, acting as a scribe for Markus Morrell MD. Provider Scribe Attestation: All medical record entries made by the Scribe were at my direction and personally dictated by me. I have reviewed the chart and agree that the record accurately reflects my personal performance of the history, physical exam, medical decision making, and the department course for this patient. I have also personally directed, reviewed, and agree with the discharge instructions and disposition. Disposition - Clinical Impression Clinical Impression: Streptococcal pharyngitis - Patient ED Disposition Is Patient to be Admitted: No - Disposition Disposition: Routine/Home Disposition Time: 05:40 Condition: IMPROVED Prescriptions: Amoxicillin/Clavulanate [Augmentin 875 MG-125 MG] 1 tab PO BID #14 tab Instructions: Strep Throat (DC) Forms: [facility] (Turkmen) Print Language: AFGHAN
[2018-03-02 05:07] LABS: BASO # 0.1 K/uL (0.0-0.2); BASO % 0.7 % (0.0-2.0); HEMOGLOBIN 14.4 g/dL (12.0-16.0); LYMPH # 1.5 K/uL (1.0-4.3); LYMPH % 14.1 % (20.0-40.0); MEAN CELL VOLUME 89.5 fl (81.0-99.0); MEAN CORPUSCULAR HEMOGLOBIN 30.5 pg (27.0-31.0); MEAN CORPUSCULAR HGB CONC 34.1 g/dL (33.0-37.0); MEAN PLATELET VOLUME 9.6 fl (7.2-11.7); MONO % 9.1 % (0.0-10.0); NEUT # 8.3 K/uL (1.8-7.0); NEUT % 76.1 % (50.0-75.0); RBC 4.71 Mil/uL (3.80-5.20); RED CELL DISTRIBUTION WIDTH 13.5 % (11.5-14.5)
[2018-03-02 05:16] LABS: ALB/GLOB RATIO 1.2 (1.0-2.1); ALBUMIN 4.4 g/dL (3.5-5.0); ALT/SGPT 33 U/L (9-52); AST/SGOT 28 U/L (14-36); BLOOD UREA NITROGEN 8 mg/dl (7-17); CALCIUM 8.9 mg/dL (8.4-10.2); GFR AFRICAN-AMERICAN > 60; GFR NON-AFRICAN AMERICAN > 60
[2018-03-02 07:15] VITALS: BP 110/62; PULSE 82; RESP 17; TEMP 97; O2SAT 99
== END 2018-03-02 06:45 | disposition home or self-care (01) ==
LOC: H.ER 03:54
DX: J02.0 Streptococcal pharyngitis (principal); E78.00 Pure hypercholesterolemia, unspecified; Z79.84 Long term (current) use of oral hypoglycemic drugs
CPT/HCPCS: 80053; 85025; 86308; 87040; 87070; 87430; 96360; 99283; J1100; J1885; J7030

== ENCOUNTER 2018-03-16 10:19 | Day surgery (SDC) | payer SELFPAY ==
[2018-03-15 08:28] VITALS: BMI 36.0
[2018-03-16] MEDS ORDERED: Lidocaine Hydrochloride 5 ML INJ ONE (10:55)
[2018-03-16 11:18] LABS: INR 0.9
[2018-03-16] MEDS ORDERED: Lactated Ringer's 1,000 ML IV ONE (11:25)
--- NOTE | 2018-03-16 13:12 | CP.SDSHP ---
Same Day Surgery H & P - History Proposed Procedure: Right breast lumpactomy Pre-Op Diagnosis: right breast ductal carcinoma in situ - Previous Medical/Surgical History Cardiac: Other (HLD) Endocrine/Metabolic: Thyroid Disease (hypothyroid), Diabetes Previous Surgical History: lap avinash (09/2017); stereotactic breast Bx 01/2018 - Allergies Allergies: Allergies No Known Allergies Allergy (Verified 03/22/17 10:11) - Physical Exam General Appearance: well, NAD Vital Signs: Vital Signs 03/16/18 03/16/18 11:10 11:13 Temperature 98.6 F Pulse Rate 66 66 Respiratory 20 Rate Blood Pressure 107/60 O2 Sat by Pulse 96 Oximetry Mental Status: Alert & Oriented x3 Neuro: WNL Heart: WNL Lungs: WNL GI: WNL - {Optional Preform as Required} Breast: Other (needle loc to R breast, palpable mass 12-1 o'clock) - Impression Impression: 53 y/o F w/ R breast DCIS Pt. Evaluated Today:Candidate for Anesthesia & Procedure: Yes - Date & Time Date: 03/16/18 Time: 13:13 Short Stay Discharge - Short Stay Discharge Admitting Diagnosis/Reason for Visit: D05.11 Disposition: HOME/ ROUTINE Referrals: Irasema Domingo MD [Staff Provider] - FAMILY PROVIDER,NO [Primary Care Provider] - Instructions: Lumpectomy, Lumpectomy (DC), Breast Surgery Exercises Additional Instructions (Diet, Activity): OK to shower, cover dressing with plastic to keep it clean and dry Please call Dr. Domingo's clinic to schedule a follow up appointment in 1 week OK to resume normal diet Ok to resume normal activities If you take the pain medications, please do not operate heavy machinery
[2018-03-16] MEDS ORDERED: Succinylcholine 200 mg/10 ml Inj IV ONE (13:49)
[2018-03-16] MEDS ORDERED: Midazolam 2 MG/2 ML VIAL ONE (13:49)
[2018-03-16] MEDS ORDERED: Propofol 10 mg/ml Inj (20 ML) ONE (13:49)
[2018-03-16] MEDS ORDERED: ceFAZolin IV 2 gm in Dextrose 2 GM/50 ML BAG IVPB ONE (14:03)
[2018-03-16] MEDS ORDERED: Oxycodone/Acetaminophen 5/325 mg Tab PO PRN (15:19)
--- NOTE | 2018-03-16 15:19 | PCM.SURG1 ---
Surgeon's Initial Post Op Note - Surgeon's Notes Surgeon: Dr. Domingo Sales Ledger Clerk: Dr. Godoy PGY4, Dr. Gibbons PGY2 Type of Anesthesia: General LMA Anesthesia Administered By: Mercedes Pre-Operative Diagnosis: Right breast mass, DCIS Operative Findings: same Post-Operative Diagnosis: same Operation Performed: Right partial mastectomy with radiographic needle localization Specimen/Specimens Removed: Right breast mass with needle Estimated Blood Loss: EBL {In ML}: 30 Blood Products Given: N/A Drains Used: No Drains Post-Op Condition: Good Date of Surgery/Procedure: 03/16/18 Time of Surgery/Procedure: 15:22
[2018-03-16] MEDS: HYDROmorphone 0.5 mg/0.5 ml ISec IVP PRN ×3 (15:20→15:50)
[2018-03-16] MEDS ORDERED: Lactated Ringer's 1,000 ML IV SCH (15:30)
[2018-03-16] MEDS ORDERED: Lactated Ringer's 500 ML IV ONE ×2 (16:42)
[2018-03-16 17:16] VITALS: RESP 18
[2018-03-16 18:18] VITALS: BP 123/64
[2018-03-16 19:04] VITALS: PULSE 68; TEMP 98; O2SAT 96
--- NOTE | 2018-03-17 08:34 | OP ---
Copied To: Filomena Gibbons DO Attending MD: Irasema Domingo MD PROCEDURE DATE: 03/16/2018 SURGEON: Irasema Domingo MD ASSISTANTS: Hyacinth Godoy DO, PGY-4 and Filomena Gibbons DO, PGY-2. ANESTHESIOLOGIST: Dr. Felipe Long ANESTHESIA: General LMA. PREOPERATIVE DIAGNOSIS: Right breast ductal carcinoma in situ. POSTOPERATIVE DIAGNOSIS: Right breast ductal carcinoma in situ. FINDINGS: Right breast mass. SPECIMEN: Ductal carcinoma in situ of right breast. BLOOD LOSS: 25 mL. DRAINS: None. COMPLICATIONS: None. INDICATION FOR PROCEDURE: This is a 53-year-old female with past medical history of hypothyroidism and diabetes, seen previously with finding of right breast ductal carcinoma in situ on imaging, sent for removal. The patient had stereotactic breast biopsy in 01/2018. The patient presents for removal of right breast mass. DESCRIPTION OF PROCEDURE: The patient was brought to the operating room and the site of surgery was verified. General anesthesia was induced. The right breast and axilla were then prepped and draped in the usual sterile fashion. A skin incision was made at approximately the 1 o'clock position from lateral to medial along the length of the wire. The mass was identified by palpation and dissected out of the breast tissue using electrocautery, the Joy scissors, and blunt dissection. The mass was circumferentially dissected out including the entire localizing needle and a wide margin of grossly normal tissue. The specimen and entire localizing wire were removed. The specimen was oriented and sent to Radiology. Confirmation was received that the entire target lesion had been resected. The wound was irrigated. Hemostasis was achieved and checked. The wound was closed with subcutaneous tissue approximation using 3-0 Vicryl. The skin was then closed using 4-0 Monocryl and a running subcuticular suture. Steri-Strips were applied to the incision. A dressing was then applied. The LMA was removed intraoperatively. The patient tolerated the procedure well and was taken to the post-anesthesia care unit in satisfactory condition. Filomena Gibbons DO Irasema Domingo MD [facility] # [id number]
--- NOTE | 2018-03-17 14:09 | MAM ---
Date of service: 03/16/2018 HISTORY: Patient is a 53 old female recently diagnosed with ductal carcinoma in situ diagnosed by ultrasound core biopsy right breast. TECHNIQUE/FINDINGS: Using a ferris wheel attendant and following full discussion of risks and benefits of the procedure with the patient as well as alternatives, written consent was freely obtained from the patient. Timeout was called for wire needle localization procedure for lesion in the right upper inner quadrant. The breast was placed in spot compression in medial-lateral projection with a grid in place and biopsy clip was identified. Overlying skin was marked for procedure. In a sterile field, overlying skin was cleaned. 4.0cc of lidocaine was utilized for skin anesthesia. Under mammographic control, a 10 cm cm needle was placed across the clip. A craniocaudal projection was then obtained and demonstrated the needle to be in good position. A modified Kopan's wire socially advanced through the needle and deployed successfully with confirmation medial-lateral projection subsequently obtained. The wire was properly secured in sterile fashion. Patient tolerated procedure well with no complications. Postoperative specimen radiograph demonstrates biopsy clip within the tissue volume as well as various calcifications. IMPRESSION: Status post successful needle wire localization procedure under mammographic control. Specimen radiography as above. We await biopsy pathology results.
== END 2018-03-16 19:50 | disposition home or self-care (01) ==
LOC: H.OPSURG 10:19
PROVIDERS: ATTEND Specialist
DX: D05.11 Intraductal carcinoma in situ of right breast (principal); E11.9 Type 2 diabetes mellitus without complications; E78.5 Hyperlipidemia, unspecified; E03.9 Hypothyroidism, unspecified
CPT/HCPCS: 19281; 36415; 76098; 82948; 85610; 85730; 88307; J0330; J0690; J1170; J1885; J2001; J2250; J2405; J2704; J3010; J7120

== ENCOUNTER 2018-03-21 15:07 | Emergency (ER) | payer SELFPAY ==
[2018-03-21 15:07] VITALS: BMI 36.0
--- NOTE | 2018-03-21 15:43 | ED PDOC ---
HPI: General Adult Time Seen by Provider: 03/21/18 15:42 Chief Complaint (Nursing): Breast Problem Chief Complaint (Provider): RIGHT BREAST PAIN History Per: Patient (53 Y/O FEMALE HERE S/P BREAST MASS REMOVAL 03/16/2018 NOTES REDNESS TO RIGHT BREAST AFTER REMOVING TAPE. NO FEVERS/CHILLS. PATIENT CONCERNED REGARDING ERYTHEMA.) Past Medical History Reviewed: Historical Data, Nursing Documentation, Vital Signs Vital Signs: Last Vital Signs Temp 98.5 F 03/21/18 15:19 Pulse 74 03/21/18 15:19 Resp 16 03/21/18 15:19 BP 108/70 03/21/18 15:19 Pulse Ox 97 03/21/18 15:43 - Medical History PMH: Hypercholesterolemia Denies: HIV, Chronic Kidney Disease - Family History Family History: States: Unknown Family Hx - Home Medications Home Medications: Ambulatory Orders Medication Instructions Recorded Atorvastatin [Lipitor] 40 mg PO DAILY 10/07/17 metFORMIN [glucOPHAGE] 500 mg PO BID 10/07/17 oxyCODONE/Acetaminophen [Percocet 1 tab PO Q4 PRN 03/16/18 5/325 mg Tab] Diphenhydramine HCl/Zinc Acet 28.3 gm TP ONCE PRN #30 cream..g. 03/21/18 [Benadryl Itch Stopping Crm] - Allergies Allergies/Adverse Reactions: Allergies Allergy/AdvReac Type Severity Reaction Status Date / Time No Known Allergies Allergy Verified 03/22/17 10:11 Review of Systems ROS Statement: Except As Marked, All Systems Reviewed And Found Negative Physical Exam - Reviewed Nursing Documentation Reviewed: Yes Vital Signs Reviewed: Yes - Physical Exam Appears: Positive for: Well, Non-toxic, No Acute Distress Head Exam: Positive for: ATRAUMATIC, NORMAL INSPECTION, NORMOCEPHALIC Skin: Positive for: Normal Color, Warm, Rash (MILD SKIN IRRITATION NOTED RIGHT LATERAL BREAST LINEAR SIMILAR TO ADHESIVE BANDAGE. NO SIGNS OF CELLULITIS/ INDURATION/WARMTH) Eye Exam: Positive for: EOMI, Normal appearance, PERRL ENT: Positive for: Normal ENT Inspection Neck: Positive for: Normal, Painless ROM Cardiovascular/Chest: Positive for: Regular Rate, Rhythm Respiratory: Positive for: CNT, Normal Breath Sounds Gastrointestinal/Abdominal: Positive for: Normal Exam, Soft Back: Positive for: Normal Inspection Extremity: Positive for: Normal ROM Neurologic/Psych: Positive for: Alert, Oriented - Laboratory Results Result Diagrams: 03/21/18 16:16 03/21/18 16:16 - ECG O2 Sat by Pulse Oximetry: 97 - Progress ED Course And Treament: SEEN BY CUSTOMER ACCOUNT REPRESENTATIVE IN ED. PATIENT TO FOLLOW UP OUTPATIENT WITH DR. STOKES. BENADRYL CREAM TO REGION OF ERYTHEMA ADVISED. Disposition - Clinical Impression Clinical Impression: Visit for wound check, Skin irritation - Patient ED Disposition Is Patient to be Admitted: No - Disposition Disposition: Routine/Home Disposition Time: 17:26 Condition: STABLE Additional Instructions: FOLLOW UP WITH DR. STOKES THIS WEEK Prescriptions: Diphenhydramine HCl/Zinc Acet [Benadryl Itch Stopping Crm] 28.3 gm TP ONCE PRN # 30 cream..g. PRN Reason: Rash Instructions: Skin Rash (DC) Print Language: LITHUANIAN
[2018-03-21 16:24] LABS: VENOUS BLOOD GAS BASE EXCESS 0.1 mmol/L (0.0-2.0); VENOUS BLOOD GAS PCO2 39 mmHg (40-60); VENOUS BLOOD GAS PO2 65 mm/Hg (30-55); VENOUS BLOOD PH 7.41 (7.32-7.43)
[2018-03-21 16:26] LABS: BASO % 0.8 % (0.0-2.0); EOS # 0.1 K/uL (0.0-0.7); EOS % 1.6 % (0.0-4.0); HEMOGLOBIN 12.4 g/dL (12.0-16.0); LYMPH # 2.4 K/uL (1.0-4.3); LYMPH % 40.3 % (20.0-40.0); MEAN CELL VOLUME 89.6 fl (81.0-99.0); MEAN CORPUSCULAR HEMOGLOBIN 30.2 pg (27.0-31.0); MEAN CORPUSCULAR HGB CONC 33.7 g/dL (33.0-37.0); MEAN PLATELET VOLUME 9.4 fl (7.2-11.7); MONO # 0.5 K/uL (0.0-0.8); MONO % 8.2 % (0.0-10.0); NEUT % 49.1 % (50.0-75.0); RBC 4.13 Mil/uL (3.80-5.20); RED CELL DISTRIBUTION WIDTH 13.6 % (11.5-14.5)
[2018-03-21 16:32] LABS: BLOOD UREA NITROGEN 8 mg/dl (7-17); GFR AFRICAN-AMERICAN > 60; GFR NON-AFRICAN AMERICAN > 60
[2018-03-21 17:31] VITALS: BP 100/60; PULSE 61; RESP 19; TEMP 98.1; O2SAT 99
== END 2018-03-21 18:15 | disposition home or self-care (01) ==
LOC: H.ER 15:07
DX: L76.82 Other postprocedural complications of skin and subcutaneous tissue (principal); Z79.84 Long term (current) use of oral hypoglycemic drugs; E78.00 Pure hypercholesterolemia, unspecified

== ENCOUNTER 2018-03-30 22:26 | Emergency (ER) | payer SELFPAY ==
[2018-03-30 22:26] VITALS: BMI 36.0
[2018-03-30 22:45] VITALS: BP 111/73; PULSE 66; RESP 16; TEMP 98; O2SAT 97
--- NOTE | 2018-03-30 23:32 | ED PDOC ---
HPI: Wound Care - HPI Time Seen by Provider: 03/30/18 23:10 Chief Complaint (Nursing): Wound Check Chief Complaint (Provider): Wound Check History Per: Patient Exam Limitations: no limitations Onset/Duration Of Symptoms: Hrs Additional Complaint(s): Patient is a 53 y/o female who on March 16 had a resection of mass from the right breast, performed by Dr. Domingo, who presents to the ED complaining of bleeding from the wound, onset a few hours ago. Patient reports she was doing okay and had a wound check about a week ago. She is here today for bleeding beginning earlier today with dark blood slowly oozing form the wound. Patient denies pain, fever, swelling to the area or any other medical complaints. Past Medical History Reviewed: Historical Data, Nursing Documentation, Vital Signs Vital Signs: Last Vital Signs Temp 98.0 F 03/30/18 22:41 Pulse 66 03/30/18 22:41 Resp 16 03/30/18 22:41 BP 111/73 03/30/18 22:41 Pulse Ox 97 03/30/18 22:41 - Medical History PMH: Hypercholesterolemia Denies: HIV, Chronic Kidney Disease - Surgical History Other surgeries: Mass resection - Family History Family History: States: Unknown Family Hx - Home Medications Home Medications: Ambulatory Orders Medication Instructions Recorded Atorvastatin [Lipitor] 40 mg PO DAILY 10/07/17 metFORMIN [glucOPHAGE] 500 mg PO BID 10/07/17 oxyCODONE/Acetaminophen [Percocet 1 tab PO Q4 PRN 03/16/18 5/325 mg Tab] Diphenhydramine HCl/Zinc Acet 28.3 gm TP ONCE PRN #30 cream..g. 03/21/18 [Benadryl Itch Stopping Crm] - Allergies Allergies/Adverse Reactions: Allergies Allergy/AdvReac Type Severity Reaction Status Date / Time No Known Allergies Allergy Verified 03/30/18 22:41 Review of Systems ROS Statement: Except As Marked, All Systems Reviewed And Found Negative Constitutional: Negative for: Fever Cardiovascular: Positive for: Other (bleeding from wound). Negative for: Chest Pain, Edema (swelling to area) Physical Exam - Reviewed Nursing Documentation Reviewed: Yes Vital Signs Reviewed: Yes - Physical Exam Appears: Positive for: Well, Non-toxic, No Acute Distress Head Exam: Positive for: ATRAUMATIC, NORMOCEPHALIC Skin: Positive for: Normal Color, Warm, Dry Eye Exam: Positive for: EOMI, Normal appearance, PERRL Neck: Positive for: Normal, Painless ROM, Supple Cardiovascular/Chest: Positive for: Regular Rate, Rhythm, Other (5 cm wound wiht no redness, swelling, discharge, tenderness or dehiscence; smal amount of dark bloody liquid in distal aspect of wound; no active bleeding). Negative for : Chest Non Tender, Murmur Respiratory: Negative for: Respiratory Distress Extremity: Positive for: Normal ROM. Negative for: Pedal Edema, Deformity Neurologic/Psych: Positive for: Alert, Oriented. Negative for: Motor/Sensory Deficits - ECG O2 Sat by Pulse Oximetry: 97 (RA) Pulse Ox Interpretation: Normal Medical Decision Making Medical Decision Making: Time: 23:20 Impression: Bleeding from surgical site Ddx includes post operative hematoma Initial Plan --Discussed patient with surgical services asst and Dr. Gibbons who reports patient was seen in the office of Dr. Domingo earlier today and he reports that there was no problems -- Patient will have to follow up with Dr. Domingo Scribe Attestation: Documented by Dorothy Leahy acting as a scribe for Som Torres MD Provider Scribe Attestation: All medical record entries made by the Scribe were at my direction and personally dictated by me. I have reviewed the chart and agree that the record accurately reflects my personal performance of the history, physical exam, medical decision making, and the department course for this patient. I have also personally directed, reviewed, and agree with the discharge instructions and disposition. Disposition - Clinical Impression Clinical Impression: Visit for wound check - Patient ED Disposition Is Patient to be Admitted: No Doctor Will See Patient In The: Office Counseled Patient/Family Regarding: Studies Performed, Diagnosis, Need For Followup - Disposition Referrals: Irasema Domingo MD [Staff Provider] - Disposition: Routine/Home Disposition Time: 23:51 Condition: GOOD Additional Instructions: Return for worsening. Follow up with your PCP in 2-3 days. Instructions: Bleeding After Surgery Print Language: IRAQI
== END 2018-03-30 23:55 | disposition home or self-care (01) ==
LOC: H.ER 22:26
DX: Z48.01 Encounter for change or removal of surgical wound dressing (principal); E78.00 Pure hypercholesterolemia, unspecified; Z79.84 Long term (current) use of oral hypoglycemic drugs